=== PATIENT | male | born 1940 | race Caucasian/White ===

== ENCOUNTER 2023-01-26 09:21 | Inpatient (IN) ==
[2023-01-26 10:07] LABS: Basophils # (auto) 0.05 K/uL (0-0.2); Eosinophils # (auto) 0.27 K/uL (0-0.50); Eosinophils % (auto) 5.2 %; Hematocrit (blood only) 33.2 % (42.0-52.0); Hemoglobin 11.1 g/dl (14.0-18.0); Immature Granulocytes # (auto) 0.04 K/uL (0.01-0.20); Immature Granulocytes % (auto) 0.8 %; Lymphocytes # (auto) 1.93 K/uL (1.2-3.4); Lymphocytes % (auto) 37.3 %; Mean Corpuscular Hemoglobin 30.3 pg (25.0-34.0); Mean Corpuscular Hgb Conc 33.4 g/dL (32.0-36.0); Mean Corpuscular Volume 90.7 fL (80.0-100.0); Mean Platelet Volume 10.9 fL (9.4-12.4); Monocytes # (auto) 0.47 K/uL (0.11-0.59); Monocytes % (auto) 9.1 %; Neutrophils # (auto) 2.41 K/uL (1.40-6.50); Neutrophils % (auto) 46.6 %; Platelet Count 283 K/uL (130-400); RDW Coefficient of Variation 13.5 % (11.5-14.5); RDW Standard Deviation 44.9 fL (36.4-46.3); Red Blood Count 3.66 M/uL (4.70-6.10); White Blood Count 5.17 K/ul (4.8-10.8)
--- NOTE | 2023-01-26 10:07 | XRay Report ---
XR chest 1V portable HISTORY: 82 years-old Male syncope acute syncope COMPARISON: Chest radiograph 05/14/2021 TECHNIQUE: AP view of the chest FINDINGS: Cardiac silhouette is enlarged. Numerous leads overlie the chest which limits the study. There is no pneumothorax, pleural effusion, airspace consolidation or pulmonary edema. Bones of the chest appear grossly intact. IMPRESSION: No acute process. ACT 112: Negative or not required by law. The above report was generated using voice recognition software. It may contain grammatical, syntax o r spelling errors. Electronically signed by: Max García M.D. 01/26/2023 10:06 AM
[2023-01-26 10:17] LABS: Albumin Globulin Ratio 1.2 (0.9-2); Albumin Level 4.1 gm/dl (3.4-5.0); BUN Creatinine Ratio 17.5 (10-20); Bilirubin,Total 0.3 mg/dl (0.2-1.0); Calcium 9.2 mg/dl (8.6-10.3); Creatinine Clr Calc Pharmacy 40.9 ml/min; Est GFR (African American) 55.7 ml/min; Globulin 3.5 gm/dl (2.5-4.0); Magnesium 2.2 mg/dl (1.7-2.4); Total Protein 7.6 gm/dl (6.0-8.3)
[2023-01-26 10:24] LABS: Troponin I High Sensitivity 11.2 pg/ml (0-20)
[2023-01-26 10:30] LABS: Thyroid Stimulating Hormone 7.332 uIu/ml (0.300-4.500)
[2023-01-26 11:02] LABS: T4 Free Thyroxine 0.76 ng/dl (0.61-1.60)
[2023-01-26] MEDS ORDERED: fentaNYL citrate PF 100 MCG/2 ML VIAL ONE (11:51)
[2023-01-26] MEDS ORDERED: MIDAZOLAM HCL 1 MG/ML 2ML VIAL ONE (11:51)
--- NOTE | 2023-01-26 12:37 | Cardiac Catheterization ---
[facility] Data: Application Developer Cardiac Status Clinical evaluation leading to the procedure CAD Presenation: Sx unlikely to be ischemic Diagnostic Physicians Name: Bhargav Saravia MD Closure Device Recommendations: Medical Therapy and/or Counseling Cardiac Cath Procedure Full Procedure Date January 26, 2023 Pre-Procedure Diagnosis Pre-Procedure Diagnosis: CAD and Arrhythmia AUC Score AUC Score: 7 Post-Procedure Diagnosis Post-Procedure Diagnosis: Cardiothoracic Finding (Successful transvenous pacemaker) Procedure(s) Performed Procedure(s) Performed: Temporary Pacemaker and Ultrasound Guided Vascular Access Hot Blast Worker Bhargav Saravia MD Estimated Blood Loss Estimated Blood Loss: <5 Medication(s) Medication(s): Lidocaine 1% Summary of Findings Temporary transvenous pacemaker placement Indication: Patient with known severe LV dysfunction and multivessel CAD awaiting revascularization. Known prior high degree AV block and left bundle branch block. Today had unresponsive event for which patient received shock from his wearable defibrillator. Back at baseline on arrival to ED with heart rates down to as low as the low 30s with high degree AV block. Procedure: Local anesthesia with 1% lidocaine Under ultrasound guidance right IJ accessed with micropuncture needle 7 Fr sheath placed to right IJ Transvenous pacing wire navigated into RV under fluoroscopic guidance Appropriate pacing confirmed down to <1 mA Sheath sutured into place Final temporary pacemaker settings: VVI 60 bpm at 5 mA Summary: 1. Successful placement of temporary transvenous pacemaker Recommendations: Awaiting transfer to [facility] for revascularization and consideration of permanent device Hemodynamics Rest Ao:: -- Final Ao: -- LV: -- Recommendations Recommendations: Medical Therapy and/or Counseling Specimens Specimens: None Radiation Exposure (mGy) 9 Contrast (mls) 0 Anesthesia Local Procedural Complication(s) None Disposition ICU I attest to the content of the Intraoperative Record and any orders documented therein. Any exceptions are noted below. [facility] Card Cath Procedure Codes Therapeutic Services & Ancillary Procedure 1: Cardiovascular Tx and Anc Procedures: 99384 Temp Pacer Insert Procedure 2: Cardiovascular Tx and Anc Procedures: 09270 Ultrasonic Guidance Vascular Access PG Care Time/CCT Total # of Minutes Spent Total Time Spent with Patient: Total time spent is greater than 50% in coordination of care (as documented) at patient's floor/unit and/or counseling patient:
--- NOTE | 2023-01-26 12:42 | History & Physical Report ---
Date of Service January 26, 2023 Assessment & Plan (1) Multiple vessel coronary artery disease: Plan: 2. Severe LV dysfunction 3. High degree AV block 4. Left bundle branch block 5. Suspected ventricular arrhythmia with unresponsive event Patient awaiting transfer to [facility] for further consideration of revascularization options and permanent pacemaker/ICD. At present he is asymptomatic. Monitor in ICU until transfer. Will start heparin infusion, aspirin. History of Present Illness Primary Care Provider: Eliza Mccarty PA-C Mr. Alfredo is an 82-year-old man with known severe LV dysfunction and multivessel CAD awaiting revascularization. Known prior high degree AV block and left bundle branch block. Today had unresponsive event for which patient received shock from his wearable defibrillator. Back at baseline on arrival to ED with heart rates down to 30s with high degree AV block. Patient underwent successful placement of temporary transvenous pacemaker. Currently asymptomatic. Allergies Allergy/AdvReac Type Severity Reaction Status Date / Time atorvastatin Allergy Muscle Pain Verified 01/25/23 10:56 ezetimibe [From Zetia] Allergy Verified 01/25/23 10:56 lisinopril Allergy Rash Verified 01/25/23 10:56 zoster vaccine live Allergy Verified 01/25/23 10:56 Home Medications Medication Instructions Recorded Confirmed Type omega-3s 300 ux-slh-tlw-other 1 tab PO HS 05/25/18 01/25/23 History kbcez7s-tteo oil 1,000 mg capsule ([place]-3 Fish Oil) gemfibrozil 600 mg tablet 600 mg PO BID 05/11/20 01/25/23 History aspirin 81 mg tablet,delayed 81 mg PO HS 05/14/21 01/25/23 History release (Pako Low Dose Aspirin) multivitamin 1 tab PO HS 05/14/21 01/25/23 History alogliptin 6.25 mg tablet 12.5 mg PO QAM 01/13/23 01/25/23 History empagliflozin 10 mg tablet 10 mg PO DAILY 01/13/23 01/25/23 History (Jardiance) mecobalamin (vitamin B12) 500 mcg 500 mcg PO DAILY 01/13/23 01/25/23 History chewable tablet metformin 500 mg tablet 1,000 mg PO BID 01/13/23 01/25/23 History tamsulosin 0.4 mg capsule 0.4 mg PO DAILY 01/13/23 01/25/23 History rosuvastatin 5 mg tablet 5 mg PO DAILY #30 tabs 01/25/23 01/25/23 Rx Past Med/Surg History Medical History Back pain Diabetes mellitus, type 2 Hypertension Urethral injury Urethral stricture Surgical History H/O elbow surgery History of tonsillectomy History of tooth extraction Family History Other No pertinent family history in first degree relatives Social History Smoking Status: Never smoker Tobacco Type: Pipe Second Hand Exposure: No; Do You Dip or Chew Tobacco: No; Hx Alcohol Use: No Hx Substance Use: No Preferred Language: French Communication Ability: Effective Director Software Required: No Beliefs That Will Affect Care: None Current Living Situation: Spouse Feels Safe at Home: Yes Assistive Devices: Denture - Upper and Denture - Lower Review of Systems Review of Systems: All systems reviewed & are unremarkable except as noted in HPI & below Physical Exam Constitutional: WD/WN, vitals as above Eyes: + anicteric sclerae Respiratory: normal respiratory effort Cardiovascular: Rate/Rhythm: regular rate Heart Sounds: + murmur Gastrointestinal (Abdomen): Percussion/Palpation: abdomen soft; abdomen nontender Skin: no rashes, warm and dry Psychiatric: A+Ox3, euthymic affect Results & Data Results & Data Vital Signs (Past 12 Hours) Vital Signs Temp Pulse Pulse Resp BP Pulse Ox O2 Del Method 01/26/23 11:25 49 L 18 95 01/26/23 11:25 159/56 H 01/26/23 11:00 43 L 14 98 01/26/23 10:46 162/59 H 01/26/23 10:46 41 L 10 L 97 01/26/23 10:31 156/62 H 01/26/23 10:31 42 L 16 96 01/26/23 10:30 39 L 15 98 01/26/23 10:20 47 L 15 97 01/26/23 10:17 49 L 17 96 01/26/23 10:17 159/84 H 01/26/23 10:10 52 L 17 97 01/26/23 10:02 46 L 13 95 01/26/23 10:02 149/42 H 01/26/23 10:00 44 L 15 96 01/26/23 09:50 47 L 18 95 01/26/23 09:46 47 L 15 95 01/26/23 09:46 131/51 L 01/26/23 09:40 46 L 17 92 01/26/23 09:34 133/41 L 01/26/23 09:34 45 L 20 95 01/26/23 09:31 47 L 18 01/26/23 09:50 46 L 01/26/23 09:40 92 Room Air 01/26/23 09:33 97.7 F 46 L 95 Room Air 01/26/23 09:33 Room Air 01/26/23 09:33 97.7 F 46 L 16 133/41 L 97 Room Air Code Status & VTE Plan VTE Prophylaxis Plan VTE Prophylaxis will be ordered: Yes PG Care Time/CCT Total # of Minutes Spent Total Time Spent with Patient: Total time spent is greater than 50% in coordination of care (as documented) at patient's floor/unit and/or counseling patient: Coding Level of Care Code 12365 INT INP/OBS CARE 2/55MIN Diagnoses Multiple vessel coronary artery disease I25.10
[2023-01-26] MEDS ORDERED: HEPARIN SODIUM/DEXTROSE 25,000 UNITS/500 ML BAG IV SCH (12:45)
[2023-01-26] MEDS ORDERED: Heparin IV Adult Wt-Based Standard *NO* Bolus Protocol IV SCH (13:45)
--- NOTE | 2023-01-26 14:00 | Critical Care Consultation ---
Date of Consultation January 26, 2023 Assessment & Plan (1) Symptomatic bradycardia: (2) Nonsustained ventricular tachycardia: (3) Multiple vessel coronary artery disease: (4) Second degree AV block: Plan Reason Critically Ill: 82-year-old male with significant past medical history of multivessel coronary disease, second-degree AV block, severe LV dysfunction, and diabetes who presented with acute unresponsive episode in the setting of V-fib. Transvenous pacer placed. Patient requires ICU for close hemodynamic monitoring in the setting of post temporary transvenous pacemaker placement. NEURO - * CAM ICU: NEGATIVE CARDIAC/VASCULAR - * Symptomatic bradycardia - * Likely multifactorial in the patient with multivessel coronary artery disease and reduced EF. * Patient with episode of nonsustained V-fib earlier today which responded to defibrillation from LifeVest. * Transvenous pacemaker placed with current rate of 60 bpm. Patient remains hemodynamically stable at this time. * Plan is for transfer to tertiary care facility with cardiothoracic surgery services. * Monitor on telemetry. RESPIRATORY - * No history of pulmonary disease. * Saturating well on room air. GI/NUTRITION - * N.p.o. pending CT surgery evaluation. RENAL/LYTES - * No significant electrolyte derangements. - * Hankins in place - Strict I&Os. ENDO - * DMII * BSGs per unit protocol. ISS --> gtt per unit policy. HEME - * Stable H&H ID - * No concerns for infectious contribution at this time. * Could consider Lyme titer for the sake of completion, but uncertain if it will change the patient's current clinical trajectory. LINES/IV ACCESS - * PIVs x2 * RIGHT IJ Transvenous Pacer DVT PROPHYLAXIS - * Heparin gtt. * SCDs I have personally spent 38 minutes of critical care time in the direct manag ement of this patient. This is a life/limb threatening event. This includes time spent evaluating patient, direct bedside care, chart review, placing orders, interpretation of diagnostic studies, discussion with consultants, patient, and family members, as well as other required patient management activities. This time is exclusive of all separately billable procedures, and teaching time and separate from and in addition to any other critical care service time. Thank you for allowing us to participate in the care of this patient. Please refer to my attending physician's documentation for any further recommendations. Supervising Physician Co-Signing Physician Notes I saw and evaluated the patient with Jairo-Yanique, PA-C, and agree with findings and plan as documented in the note. 82-year-old male with past medical history of multi vessel disease s/p recent cardiac cath. Past medical history: Diabetes, dyslipidemia, BPH He presented to the hospital and high degree AV block with left bundle branch block. He had a syncopal episode at home with 1 shock from the cardiac arrest that he had. He was taken to the [facility] and temporary pacemaker was placed in by cardiology. Sent to ICU for further management At the time of examination patient's heart rate was paced at 60. Blood pressure systolic was in the 150s. Saturation 97% on room air He denied any nausea vomiting No chest pain, no dizziness, no palpitation No headache, no blurry vision Denies any shortness of breath His is also in the room to help with interrogation Constitutional: No acute distress HEENT: EOMI, PERRLA Respiratory system: Good air entry bilaterally, no wheeze, no rhonchi, mild crackles bilateral lower lobes CVS: S1-S2 positive, positive 2 out of 6 systolic murmur appreciated best at aorta Abdomen: Soft, nontender, nondistended, positive bowel sounds x4 Extremities: +2 pulses bilaterally radialis/ dorsalis pedis, no cyanosis, no edema Neuro: Awake alert oriented x3 Psych: Normal mood and affect G/U: No Hankins --Prophylaxis VTE: IPC GI: None Lines: Peripheral, right IJ pacemaker Diet: N.p.o. Plan: Patient was started on heparin drip but he had a mucoid bowel movement with some blood in it. Heparin drip was stopped. Patient is excepted at [facility] for further management. Awaiting transport. Continue monitor hemodynamics. Case was discussed with Dr. Saravia I have personally spent 38 minutes of critical care time in the direct management of this patient. This is a life/limb threatening event. This includes time spent evaluating patient, direct bedside care, chart review, placing orders, interpretation of diagnostic studies, discussion with consultants, patient, and family members, as well as other required patient management activities. This time is exclusive of all separately billable procedures, and teaching time and separate from and in addition to any other critical care service time. Please note the above document was generated using voice recognition software. It may contain grammatical, syntax or spelling errors. History of Present Illness Reason for Consultation: temporary pacemaker Requesting Physician: Dr. Saravia Attending Physician: Bhargav Saravia MD History of Present Illness Patient is an 82-year-old male with a significant past medical history of multivessel coronary artery disease, second-degree AV block, cardiomyopathy, dyslipidemia, and diabetes. The patient had recently been evaluated in the outpatient setting for dyspnea on exertion. He was found to have multivessel coronary artery disease. He was actually seen in office yesterday and arrangements were being made for tertiary care referral. Patient had been fitted with a LifeVest given his reduced EF of 25 to 30%. Patient had an episode of unresponsiveness and received a shock from his wearable defibrillator. He was brought to the emergency department where his heart rate was found to be in the 20s to 30s. He underwent placement of transvenous pacemaker. Upon arrival in the ICU, the patient is awake, alert, and oriented. He reports feeling much better at this time. He currently denies complaints of headaches, dizziness, lightheadedness, chest pain, palpitations, pleuritic pain, nausea, vomiting, or abdominal discomfort. Allergies Allergy/AdvReac Type Severity Reaction Status Date / Time atorvastatin Allergy Muscle Pain Verified 01/25/23 10:56 ezetimibe [From Zetia] Allergy Verified 01/25/23 10:56 lisinopril Allergy Rash Verified 01/25/23 10:56 zoster vaccine live Allergy Verified 01/25/23 10:56 Home Medications Medication Instructions Recorded Confirmed Type omega-3s 300 kl-huz-rpl-other 1 tab PO HS 05/25/18 01/25/23 History pnsui8j-ywwv oil 1,000 mg capsule ([place]-3 Fish Oil) gemfibrozil 600 mg tablet 600 mg PO BID 05/11/20 01/25/23 History aspirin 81 mg tablet,delayed 81 mg PO HS 05/14/21 01/25/23 History release (Pako Low Dose Aspirin) multivitamin 1 tab PO HS 05/14/21 01/25/23 History alogliptin 6.25 mg tablet 12.5 mg PO QAM 01/13/23 01/25/23 History empagliflozin 10 mg tablet 10 mg PO DAILY 01/13/23 01/25/23 History (Jardiance) mecobalamin (vitamin B12) 500 mcg 500 mcg PO DAILY 01/13/23 01/25/23 History chewable tablet metformin 500 mg tablet 1,000 mg PO BID 01/13/23 01/25/23 History tamsulosin 0.4 mg capsule 0.4 mg PO DAILY 01/13/23 01/25/23 History rosuvastatin 5 mg tablet 5 mg PO DAILY #30 tabs 01/25/23 01/25/23 Rx Patient History Medical History Back pain Diabetes mellitus, type 2 Hypertension Urethral injury Urethral stricture Surgical History H/O elbow surgery History of tonsillectomy History of tooth extraction Family History Other No pertinent family history in first degree relatives Social History Smoking Status: Never smoker Tobacco Type: Pipe Second Hand Exposure: No; Do You Dip or Chew Tobacco: No; Hx Alcohol Use: No Hx Substance Use: No Preferred Language: Thai Communication Ability: Effective Hand Alterations Seamstress Required: No Beliefs That Will Affect Care: None Current Living Situation: Spouse Other Information That Helps Us Care for You: No Feels Safe at Home: Yes Safety Concerns: Feels Safe At This Time Assistive Devices: Denture - Upper, Denture - Lower and Glasses Review of Systems Review of Systems: A complete 10 point review of systems was reviewed with the patient with pertinent positives and negatives as per history of present illness. All else were negative. Physical Exam Physical Exam: VITAL SIGNS - Vital signs and nursing notes were reviewed. GENERAL - 82-year-old male appearing his stated age who is in no acute distress. Communicates well with provider and answers questions appropriately. EYES - PERRL with EOMI bilaterally. Sclera anicteric. NOSE - Midline and without cyanosis. MOUTH/OROPHARYNX - Without perioral cyanosis. NECK - Neck with FROM. Supple to palpation. RIGHT IJ Transvenous pacer in place. Dressing clean, dry, and intact. LUNGS - Chest wall symmetric without accessory muscle use, intercostals retractions, or central cyanosis. Normal vesicular breath sounds CTA B/L. No wheezes, rales, or rhonchi appreciated. CARDIAC - RRR with S1/S2. No murmur, rubs, or gallops appreciated. No reproducible tenderness to palpation appreciated over the anterior chest wall. ABDOMEN - Abdominal contour flat without pulsations or visible masses. BS normoactive all four quadrants. No tenderness, palpable masses, hepatosplenomegaly, or ascites noted. EXTREMITIES - No clubbing or peripheral cyanosis. No pretibial edema present. +3 /5 radial and dorsalis pedis pulses palpated throughout. +5/5 strength noted in UE/LE bilaterally. NEUROLOGIC - Cranial nerves II through XII grossly intact. Sensory intact to light touch throughout. PSYCH - A&Ox3 and cooperates fully with examiner. Pt is very pleasant and interacts well with examiner. Results & Data Results & Data Vital Signs (Past 12 Hours) Vital Signs Temp Pulse Pulse Resp BP BP Pulse Ox 01/26/23 13:00 60 18 154/66 H 97 01/26/23 12:45 60 18 176/63 H 97 01/26/23 12:30 60 18 165/63 H 97 01/26/23 11:25 49 L 18 95 01/26/23 11:25 159/56 H 01/26/23 11:00 43 L 14 98 01/26/23 10:46 162/59 H 01/26/23 10:46 41 L 10 L 97 01/26/23 10:31 156/62 H 01/26/23 10:31 42 L 16 96 01/26/23 10:30 39 L 15 98 01/26/23 10:20 47 L 15 97 01/26/23 10:17 49 L 17 96 01/26/23 10:17 159/84 H 01/26/23 10:10 52 L 17 97 01/26/23 10:02 46 L 13 95 01/26/23 10:02 149/42 H 01/26/23 10:00 44 L 15 96 01/26/23 09:50 47 L 18 95 01/26/23 09:46 47 L 15 95 01/26/23 09:46 131/51 L 01/26/23 09:40 46 L 17 92 01/26/23 09:34 133/41 L 01/26/23 09:34 45 L 20 95 01/26/23 09:31 47 L 18 01/26/23 09:50 46 L 01/26/23 09:40 92 01/26/23 09:33 36.5 C 46 L 95 01/26/23 09:33 01/26/23 09:33 36.5 C 46 L 16 133/41 L 97 O2 Del Method 01/26/23 13:00 Room Air 01/26/23 12:45 Room Air 01/26/23 12:30 Room Air 01/26/23 11:25 01/26/23 11:25 01/26/23 11:00 01/26/23 10:46 01/26/23 10:46 01/26/23 10:31 01/26/23 10:31 01/26/23 10:30 01/26/23 10:20 01/26/23 10:17 01/26/23 10:17 01/26/23 10:10 01/26/23 10:02 01/26/23 10:02 01/26/23 10:00 01/26/23 09:50 01/26/23 09:46 01/26/23 09:46 01/26/23 09:40 01/26/23 09:34 01/26/23 09:34 01/26/23 09:31 01/26/23 09:50 01/26/23 09:40 Room Air 01/26/23 09:33 Room Air 01/26/23 09:33 Room Air 01/26/23 09:33 Room Air Laboratory Results 01/26/23 09:00 01/26/23 09:00 Coding Level of Care Code 87234 CRITICAL CARE 1ST 30-74M Diagnoses Symptomatic bradycardia R00.1 Nonsustained ventricular tachycardia I47.29 Multiple vessel coronary artery disease I25.10 Second degree AV block I44.1 Time Spent (min) 38
[2023-01-26] MEDS ORDERED: ICU Protocol for HYPERglycemia SCH (16:30)
[2023-01-27] MEDS ORDERED: ASPIRIN 81 MG ECTAB PO SCH (09:00)
--- NOTE | 2023-01-27 22:01 | Electrocardiogram Report ---
Test Reason : Blood Pressure : / mmHG Vent. Rate : 049 BPM Atrial Rate : 000 BPM P-R Int : 000 ms QRS Dur : 146 ms QT Int : 518 ms P-R-T Axes : 000 -51 107 degrees QTc Int : 467 ms Sinus bradycardia with 2nd degree A-V block (Mobitz I) Premature ventricular complexes Left axis deviation Left bundle branch block Abnormal ECG When compared with ECG of 14-MAY-2021 02:24, Sinus rhythm is now with 2nd degree A-V block (Mobitz I) Vent. rate has decreased BY 33 BPM Left bundle branch block is now Present Confirmed by Denny Olsen ([id number]) on 01/27/2023 10:01:39 PM Referred By: REFERRED SELF Confirmed By:Denny Olsen
--- NOTE | 2023-01-28 08:21 | Emergency Department Note ---
Impression & Plan Nonsustained ventricular tachycardia, Second degree AV block, Symptomatic bradycardia ED Provider Note CHIEF COMPLAINT: syncope HISTORY OF PRESENT ILLNESS: This 82 yo male patient with PMH bradycardia, CAD, nonsustained ventricular tachycardia, cardiomyopathy presents to the emergency department after a syncopal episode. Patient states he got a warm sensation and then his LifeVest shocked him. He did briefly lose consciousness but woke up quickly. Patient is brought in by EMS, noted to be hypotensive upon their arrival and external pacing was initiated. Patient received 2.5 mg of IV Versed for sedation. Blood pressures on arrival are normal with systolic pressure 120- 130. REVIEW OF SYSTEMS: A review of systems was performed with positives and pertinent negatives listed in the history of present illness. 10 systems were reviewed and are otherwise negative. ALLERGIES: see below MEDICATIONS: see below PMH: see below SOCIAL HISTORY: see below DDx: Ventricular dysrhythmia, orthostatic syncope, vasovagal syncope, dehydration, electrolyte abnormality, acute coronary syndrome amongst others PHYSICAL EXAM: Vital signs reviewed. General: Chronically ill-appearing 82-year-old male, in no significant distress. External pacer pads in place HEENT: No scleral icterus, PERRLA, neck supple. Atraumatic. Cardiovascular: Diminished heart tones with regular rhythm, systolic ejection murmur, external pacing Pulmonary: Clear to auscultation bilaterally, normal work of breathing. Abdomen: Soft, nontender, nondistended, positive bowel sounds. Musculoskeletal: Atraumatic, no peripheral edema. Neurologic: Patient sedate appearing but awake and answering questions, CN II- XII intact, oriented x 3, speech is clear Skin: Warm, dry, no rash EMERGENCY DEPARTMENT COURSE/MDM: This patient was evaluated and appeared to be in no significant distress. IV access was obtained and laboratory work was drawn. The patient was placed on a groundwater monitoring technician and noted to be paced, consistent with his external pacemaker. Review of the patient's records, patient has been referred to [facility] for evaluation of staged PCI versus CABG. and consult Dr. Olsen of [facility] cardiology who recommended transfer to [facility] for higher level of care. [facility] cardiology was contacted and Dr. Garcia has accepted the patient but recommended transvenous pacing for stability during transfer. The patient was taken to the Food Services Director by Dr. Saravia for pacer placement. MONITORING: An order for cardiac monitoring was placed and the patient is noted to be in a paced rhythm at 47 beats per minute. RADIOLOGY: CXR to my interpretation reveals no focal lung consolidation or failure. Otherwise defer to radiology. EKG: To my interpretation is a sinus bradycardia with second-degree AV block, PVC with left bundle branch block and left axis deviation. QTc is 467. When compared to previous dated May 14, 2021, second-degree AV block and left bundle branch block are now present. Rate has decreased. 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 I have personally spent 45 minutes of critical care time in the direct management of this patient. This was a life/limb threatening event. This 45 minutes is in excess of all separately billable procedures. Past Med/Surg History Medical History Back pain Diabetes mellitus, type 2 Hypertension Urethral injury HAD INJURY 1957--HAD MULTIPLE PROCEDURES TO ENLARGE WITH CATH PLACEMENTS, LAST 03/2018--FREQ UTI'S Urethral stricture Surgical History H/O elbow surgery RIGHT History of tonsillectomy History of tooth extraction ALL TEETH Family History Other No pertinent family history in first degree relatives Social History Smoking Status: Never smoker Tobacco Type: Pipe Second Hand Exposure: No; Do You Dip or Chew Tobacco: No; Hx Alcohol Use: No Hx Substance Use: No Preferred Language: Russian Communication Ability: Effective Clinical Research Director Required: No Beliefs That Will Affect Care: None Current Living Situation: Spouse Feels Safe at Home: Yes Assistive Devices: Denture - Upper, Denture - Lower and Glasses Allergies Allergies Allergy/AdvReac Type Severity Reaction Status Date / Time atorvastatin Allergy Muscle Pain Verified 01/25/23 10:56 ezetimibe [From Zetia] Allergy Verified 01/25/23 10:56 lisinopril Allergy Rash Verified 01/25/23 10:56 zoster vaccine live Allergy Verified 01/25/23 10:56 Home Meds Home Medications Medication Instructions Recorded Confirmed omega-3s 300 sw-lku-rfv-other 1 tab PO HS 05/25/18 01/25/23 itbru0e-ngny oil 1,000 mg capsule ([place]-3 Fish Oil) gemfibrozil 600 mg tablet 600 mg PO BID 05/11/20 01/25/23 aspirin 81 mg tablet,delayed 81 mg PO HS 05/14/21 01/25/23 release (Pako Low Dose Aspirin) multivitamin 1 tab PO HS 05/14/21 01/25/23 alogliptin 6.25 mg tablet 12.5 mg PO QAM 01/13/23 01/25/23 empagliflozin 10 mg tablet 10 mg PO DAILY 01/13/23 01/25/23 (Jardiance) mecobalamin (vitamin B12) 500 mcg 500 mcg PO DAILY 01/13/23 01/25/23 chewable tablet metformin 500 mg tablet 1,000 mg PO BID 01/13/23 01/25/23 tamsulosin 0.4 mg capsule 0.4 mg PO DAILY 01/13/23 01/25/23 Previous Rx's Medication Instructions Recorded rosuvastatin 5 mg tablet 5 mg PO DAILY #30 tabs 01/25/23 Results & Data (ED) Home Medications Current Medication List: was personally reviewed by me Laboratory Data Attestation: I reviewed the patient's lab results. 01/26/23 09:00 01/26/23 09:00 Lab Results 01/26/23 01/26/23 01/26/23 Range/Units 09:00 09:00 09:00 WBC 5.17 (4.8-10.8) K/ul RBC 3.66 L (4.70-6.10) M/uL Hgb 11.1 L (14.0-18.0) g/dl Hct 33.2 L (42.0-52.0) % MCV 90.7 (80.0-100.0) fL MCH 30.3 (25.0-34.0) pg MCHC 33.4 (32.0-36.0) g/dL RDW Std Deviation 44.9 (36.4-46.3) fL RDW Coeff of Supriya 13.5 (11.5-14.5) % Plt Count 283 (130-400) K/uL MPV 10.9 (9.4-12.4) fL Immature Gran % (Auto) 0.8 % Neut % (Auto) 46.6 % Lymph % (Auto) 37.3 % Warren % (Auto) 9.1 % Eos % (Auto) 5.2 % Baso % (Auto) 1.0 % Neut # (Auto) 2.41 (1.40-6.50) K/uL Lymph # (Auto) 1.93 (1.2-3.4) K/uL Warren # (Auto) 0.47 (0.11-0.59) K/uL Eos # (Auto) 0.27 (0-0.50) K/uL Baso # (Auto) 0.05 (0-0.2) K/uL Immature Gran # (Auto) 0.04 (0.01-0.20) K/uL Sodium 136 (136-145) mmol/L Potassium 5.0 (3.5-5.1) mmol/L Chloride 105 (98-107) mmol/L Carbon Dioxide 19 L (21-32) mmol/L Anion Gap 12 H (3-11) BUN 24 H (6-23) mg/dl Creatinine 1.37 (0.6-1.4) mg/dl Est Cr Clr Drug Dosing 40.9 ml/min Est GFR ( Amer) 55.7 ml/min Est GFR (Non-Af Amer) 48.0 ml/min BUN/Creatinine Ratio 17.5 (10-20) Glucose 267 H (70-99(Fasting)) mg/dl Calcium 9.2 (8.6-10.3) mg/dl Magnesium 2.2 (1.7-2.4) mg/dl Total Bilirubin 0.3 (0.2-1.0) mg/dl AST 21 (13-39) U/L ALT 14 (7-52) U/L Alkaline Phosphatase 68 (34-104) U/L Troponin I High Sens 11.2 (0-20) pg/ml Total Protein 7.6 (6.0-8.3) gm/dl Albumin 4.1 (3.4-5.0) gm/dl Globulin 3.5 (2.5-4.0) gm/dl Albumin/Globulin Ratio 1.2 (0.9-2) TSH 7.332 H (0.300-4.500) uIu/ml Free T4 0.76 (0.61-1.60) ng/dl SARS-CoV-2, RNA, NAAT (NEGATIVE) 01/26/23 Range/Units 09:45 WBC (4.8-10.8) K/ul RBC (4.70-6.10) M/uL Hgb (14.0-18.0) g/dl Hct (42.0-52.0) % MCV (80.0-100.0) fL MCH (25.0-34.0) pg MCHC (32.0-36.0) g/dL RDW Std Deviation (36.4-46.3) fL RDW Coeff of Supriay (11.5-14.5) % Plt Count (130-400) K/uL MPV (9.4-12.4) fL Immature Gran % (Auto) % Neut % (Auto) % Lymph % (Auto) % Warren % (Auto) % Eos % (Auto) % Baso % (Auto) % Neut # (Auto) (1.40-6.50) K/uL Lymph # (Auto) (1.2-3.4) K/uL Warren # (Auto) (0.11-0.59) K/uL Eos # (Auto) (0-0.50) K/uL Baso # (Auto) (0-0.2) K/uL Immature Gran # (Auto) (0.01-0.20) K/uL Sodium (136-145) mmol/L Potassium (3.5-5.1) mmol/L Chloride (98-107) mmol/L Carbon Dioxide (21-32) mmol/L Anion Gap (3-11) BUN (6-23) mg/dl Creatinine (0.6-1.4) mg/dl Est Cr Clr Drug Dosing ml/min Est GFR ( Amer) ml/min Est GFR (Non-Af Amer) ml/min BUN/Creatinine Ratio (10-20) Glucose (70-99(Fasting)) mg/dl Calcium (8.6-10.3) mg/dl Magnesium (1.7-2.4) mg/dl Total Bilirubin (0.2-1.0) mg/dl AST (13-39) U/L ALT (7-52) U/L Alkaline Phosphatase (34-104) U/L Troponin I High Sens (0-20) pg/ml Total Protein (6.0-8.3) gm/dl Albumin (3.4-5.0) gm/dl Globulin (2.5-4.0) gm/dl Albumin/Globulin Ratio (0.9-2) TSH (0.300-4.500) uIu/ml Free T4 (0.61-1.60) ng/dl SARS-CoV-2, RNA, NAAT NEGATIVE (NEGATIVE) Administered Medications Discontinued Medications Fentanyl Citrate (Fentanyl Citrate Pf 100 Mcg/2 Ml Vial) Confirm Administered Dose 100 mcg .ROUTE .STK-MED ONE Stop: 01/26/23 11:52 Last Admin: 01/26/23 14:11 Dose: Not Given Documented By: KYRA Heparin Sodium/Dextrose (Heparin Sodium/Dextrose) 25,000 units in 500 mls @ 26 mls/hr IV .[id number] [facility]; Protocol Stop: 02/25/23 12:44 Last Titration: 01/26/23 14:43 Dose: 0 units/hr, 0 mls/hr Documented By: KYRA Co-signed By: SARAH Admin: 01/26/23 14:13 Dose: 1,300 units/hr, 26 mls/hr Documented By: KYRA Co-signed By: MARILEE Midazolam HCl (Midazolam Hcl 1 Mg/Ml 2ml Vial) Confirm Administered Dose 2 mg .ROUTE .STK-MED ONE Stop: 01/26/23 11:52 Last Admin: 01/26/23 14:12 Dose: Not Given Documented By: KYRA Imaging Data Radiologist's Impression: Chest X-Ray 01/26/23 09:35 XR chest 1V portable HISTORY: 82 years-old Male syncope acute syncope COMPARISON: Chest radiograph 05/14/2021 TECHNIQUE: AP view of the chest FINDINGS: Cardiac silhouette is enlarged. Numerous leads overlie the chest which limits the study. There is no pneumothorax, pleural effusion, airspace consolidation or pulmonary edema. Bones of the chest appear grossly intact. IMPRESSION: No acute process. ACT 112: Negative or not required by law. The above report was generated using voice recognition software. It may contain grammatical, syntax or spelling errors. Electronically signed by: Max García M.D. 01/26/2023 10:06 AM Discharge Plan Visit Data Chief Complaint: Bradycardia Stated Complaint: BRADYCARDIA, SYNCOPE, AMS ED Provider: Farnaz Manuel Discharge Problem: Nonsustained ventricular tachycardia, Second degree AV block, Symptomatic bradycardia
--- NOTE | 2023-02-06 09:53 | Discharge Summary ---
Date of Service February 06, 2023 Admission HPI Per Admitting Provider Mr. Alfredo is an 82-year-old man with known severe LV dysfunction and multivessel CAD awaiting revascularization. Known prior high degree AV block and left bundle branch block. Today had unresponsive event for which patient received questionable shock from his wearable defibrillator. Back at baseline on arrival to ED with heart rates down to 30s with high degree AV block. Patient underwent successful placement of temporary transvenous pacemaker. Currently asymptomatic. Admission Exam (Per Admitting) Constitutional WD/WN, vitals as above Eyes + anicteric sclerae Respiratory normal respiratory effort Cardiovascular Rate/Rhythm: regular rate Heart Sounds: + murmur Gastrointestinal (Abdomen) Percussion/Palpation: abdomen soft; abdomen nontender Skin no rashes, warm and dry Psychiatric A+Ox3, euthymic affect Discharge Data Consultations 01/26/23 12:22 Consult Radio Time Buyer Routine 01/26/23 13:55 Burn CD for patient Stat Procedures Performed Operation Date: 01/26/23 11:30 Actual Procedures p Ins/RemTemporary Transvenous Pacer - George Saravia MD s Ultrasound Vascular Access - George Saravia MD Hospital Course (1) Multiple vessel coronary artery disease: 2. Severe LV dysfunction 3. High degree AV block 4. Left bundle branch block 5. Unresponsive eventquestion symptomatic bradycardia versus ventricular arrhythmia Patient was monitored briefly in ICU with transvenous temporary pacemaker in place. Was started on heparin infusion but held in the setting of questionable blood in sputum. He otherwise remained asymptomatic with no recurrent chest pain, presyncope. Transferred to [facility] via ambulance for further consideration of revascularization options and permanent pacemaker/ICD. Follow-up with Dr. Rivera as an outpatient following hospitalization. Coding Level of Care Code 65463 IN/OBS DISCH 30 MIN/LESS Diagnoses Multiple vessel coronary artery disease I25.10
== END 2023-01-26 16:02 | disposition short-term general hospital (02) | DRG 262 ==
LOC: ED 09:21 → CC 12:01 → 1E 12:22

== ENCOUNTER 2024-08-06 05:51 | Inpatient (IN) ==
--- NOTE | 2024-07-17 10:01 | PAT Medication Instructions ---
Medication Instructions Date of Service July 17, 2024 Home Medications omega-3s 300 ky-pzo-nyo-other xxqko0x-lmfw oil 1,000 mg capsule ([place]-3 Fish Oil) 1 tab PO HS aspirin 81 mg tablet,delayed release (Pako Low Dose Aspirin) 81 mg PO HS multivitamin 1 tab PO QAM mecobalamin (vitamin B12) 500 mcg chewable tablet 500 mcg PO QAM metformin 500 mg tablet 1,000 mg PO BID tamsulosin 0.4 mg capsule 0.4 mg PO PM metoprolol succinate 25 mg tablet,extended release 24 hr 37.5 mg PO QAM rosuvastatin 5 mg tablet 5 mg PO HS apixaban 5 mg tablet 5 mg PO BID hydralazine 25 mg tablet 25 mg PO QAM isosorbide mononitrate 30 mg tablet,extended release 24 hr 15 mg PO QAM pantoprazole 20 mg tablet,delayed release 20 mg PO QAM semaglutide 0.25 mg or 0.5 mg (2 mg/3 mL) subcutaneous pen injector 0.5 mg subcut WK spironolactone 25 mg tablet 25 mg PO QAM ASK your prescriber and surgeon aspirin 81 mg tablet,delayed release (Pako Low Dose Aspirin) 81 mg PO HS apixaban 5 mg tablet 5 mg PO BID STOP taking 2 weeks before surgery omega-3s 300 kd-wsn-dmz-other gfubl5t-nuzz oil 1,000 mg capsule ([place]-3 Fish Oil) 1 tab PO HS STOP taking at least 7 days before surgery semaglutide 0.25 mg or 0.5 mg (2 mg/3 mL) subcutaneous pen injector 0.5 mg subcut WK DO NOT take the morning of surgery multivitamin 1 tab PO QAM mecobalamin (vitamin B12) 500 mcg chewable tablet 500 mcg PO QAM metformin 500 mg tablet 1,000 mg PO BID spironolactone 25 mg tablet 25 mg PO QAM Take morning of surgery With a small sip of water, OTHERWISE NOTHING TO EAT OR DRINK AFTER MIDNIGHT: metoprolol succinate 25 mg tablet,extended release 24 hr 37.5 mg PO QAM hydralazine 25 mg tablet 25 mg PO QAM isosorbide mononitrate 30 mg tablet,extended release 24 hr 15 mg PO QAM pantoprazole 20 mg tablet,delayed release 20 mg PO QAM Take evening before surgery metformin 500 mg tablet 1,000 mg PO BID tamsulosin 0.4 mg capsule 0.4 mg PO PM rosuvastatin 5 mg tablet 5 mg PO HS Other Notes If you have any questions please call us at [phone] or [phone] or [phone] or [phone]
--- NOTE | 2024-07-24 09:02 | Anesthesiology Consultation ---
Date of Service July 24, 2024 Assessment & Plan (1) Encounter for pre-operative examination: - will request most recent cardiology office note and [facility] report [facility]. - check BSG am DOS. - ICD. - semaglutide instructions: Patient informed at PAT visit to stop 7 days prior to surgery-voiced understanding. Patient advised to check with prescriber to see if alternative diabetic management changes recommended while holding semaglutide- if so, patient to call back to PAT to update chart and discuss if any further preop medication instructions needed. Patient and state prescribing provider is aware and also advised semaglutide be held for 7 days. Chart Review Chart Review: Pending: Refer to Additional Notes / Consult section and Patient seen in Pre Admission Testing Teaching & Discussion Pre-Anesthesia Teaching/Discussion Notes: Instructed NPO after midnight before surgery, except medications with 15 cc of water. Medication instructions pro vided according to the PAT guidelines. History Surgery Operation Date: 08/06/24 08:00 Proposed Procedures p Right Transcarotid Artery Revascularization - Aleksander Peñaloza MD Height/Weight Height: 5 ft 8 in Weight: 77 kg Allergies Allergy/AdvReac Type Severity Reaction Status Date / Time atorvastatin Allergy Unknown Muscle Pain Verified 07/16/24 14:03 ezetimibe [From Zetia] Allergy Unknown Muscle Pain Verified 07/16/24 14:03 lisinopril Allergy Unknown Rash Verified 07/16/24 14:03 zoster vaccine live Allergy Unknown Rash Verified 07/16/24 14:03 simvastatin AdvReac Unknown Muscle Pain Verified 07/16/24 14:03 Medications Home Medications Medication Instructions Recorded Confirmed Last Taken omega-3s 300 bx-ocf-lbt-other 1 tab PO HS 05/25/18 07/16/24 07/25/23 tctcg2h-irjg oil 1,000 mg capsule ([place]-3 Fish Oil) aspirin 81 mg tablet,delayed 81 mg PO HS 05/14/21 07/16/24 07/25/23 release (Pako Low Dose Aspirin) multivitamin 1 tab PO QAM 05/14/21 07/16/24 07/25/23 mecobalamin (vitamin B12) 500 mcg 500 mcg PO QAM 01/13/23 07/16/24 07/25/23 chewable tablet metformin 500 mg tablet 1,000 mg PO BID 01/13/23 07/16/24 07/25/23 metoprolol succinate 25 mg 37.5 mg PO QAM 07/17/23 07/16/24 07/26/23 08:30 tablet,extended release 24 hr rosuvastatin 5 mg tablet 5 mg PO HS 07/17/23 07/16/24 07/25/23 apixaban 5 mg tablet 5 mg PO BID 07/16/24 07/16/24 Unknown hydralazine 25 mg tablet 25 mg PO QAM 07/16/24 07/16/24 Unknown isosorbide mononitrate 30 mg 15 mg PO QAM 07/16/24 07/16/24 Unknown tablet,extended release 24 hr pantoprazole 20 mg tablet,delayed 20 mg PO QAM 07/16/24 07/16/24 Unknown release semaglutide 0.25 mg or 0.5 mg (2 0.5 mg subcut WK 07/16/24 07/16/24 Unknown mg/3 mL) subcutaneous pen injector spironolactone 25 mg tablet 25 mg PO QAM 07/16/24 07/16/24 Unknown docusate sodium 100 mg tablet 100 mg PO BID PRN Constipation 07/24/24 07/24/24 Unknown Additional Notes: Patient was instructed and it was written on provided medication instructions to not take docusate the morning of surgery. Patient states that they were instructed to not yet take hydralazine or isosorbide mononitrate and he is no longer taking tamsulosin under instruction of the [place]. Past Medical History Medical History (Updated 07/24/24 @ 10:33 by Sophia Yadav PA-C) Cardiomyopathy EF 30% Diabetes mellitus, type 2 NIDDM GERD (gastroesophageal reflux disease) since starting Ozempic History of bradycardia pacemaker placed Hyperlipidemia Hypertension controlled, stable per pt ICD (implantable cardioverter-defibrillator) in place placed 5 days after open heart surgery at [facility], January 2023 > [employer] - last checked "few months" Multiple vessel coronary artery disease s/p CABG x 2 On anticoagulant therapy Second degree atrioventricular block pacer > follows with [facility] cardio and Dr. Kaur Stenosis of right carotid artery severe Umbilical hernia Urethral injury self catherizes 3 times a day- follows w/ urology at [facility] [place] INJURY 1957--HAD MULTIPLE PROCEDURES TO ENLARGE WITH CATH PLACEMENTS Patient denies h/o stroke, seizures, blood clots/DVTs or blood transfusions. Exercise / Class Metabolic Activity II 4-5 Yardwork/Stairs/Walk up hill (denies chest discomfort or shortness of breath with one flight of stairs) Past Family History Family History Other No pertinent family history in first degree relatives Past Surgical History Surgical History (Updated 07/24/24 @ 10:32 by Sophia Yadav PA-C) H/O elbow surgery right History of aortic valve replacement History of cardiac cath January 2023 at [facility] > no stents > bypass/valve surgery History of cataract surgery left History of coronary artery bypass graft January 2023 at [facility] > 2 vessels History of tonsillectomy History of tooth extraction ALL TEETH Hx of right cataract extraction Past Anesthesia History No Hx of Anesthesia Complications and No Family Hx of Anesthesia Complications History of PONV No Hx of PONV and No Hx of Motion Sickness Social History Smoking Status: Former smoker tobacco type: pipe Do You Dip or Chew Tobacco: No Smoking End Date: quit 1980 Hx Alcohol Use: Yes Alcohol type: wine alcohol intake frequency: holidays/special occasions only Hx Substance Use: No substance use type: does not use Review of Systems Snoring, denies witnessed apneas. Patient denies chest pain, shortness of breath, dyspnea on exertion, fever, chills, cough, wheezing, or palpitations. Physical Exam Vital Signs Vitals BP 112/70 P 76 TEMP 98.5 SP02 96% on RA RESP 18 Physical Patient resting comfortably in chair in no acute distress, alert and oriented, responding appropriately throughout visit Full cervical extension range of motion without pain TMD < 3 finger breadths Mallampati Score 2 Dentition: upper and lower dentures Lungs: normal respiratory effort. Good air movement, clear throughout to auscultation, no adventitious breath sounds Cardiac: regular rate and rhythm, no murmurs noted Carotid arteries: negative bruit bilat Lab Results Anesthesia Preop Results Results Anesthesia Widget: Na 137 mmol/L (136-145) 07/24/24 K 4.8 mmol/L (3.5-5.1) 07/24/24 Cl 102 mmol/L (98-107) 07/24/24 CO2 27 mmol/L (21-32) 07/24/24 BUN 21 mg/dl (6-23) 07/24/24 Creat 1.07 mg/dl (0.6-1.4) 07/24/24 Glucose Level 185 mg/dl (70-99(Fasting)) H 07/24/24 PT 11.1 Seconds (9.0-12.0) 07/24/24 PTT 24 Seconds (21-31) 07/24/24 INR 1.0 (0.9-1.1) 07/24/24 HA1c 7.0 % (4.5-5.6) H 07/24/24 Blood Type A Negative 07/24/24 Antibody Screen NEGATIVE 07/24/24 Testing Laboratory Results 07/12/24 WBC: 10.3 H/H: PLATELETS: 203,000 Electrocardiogram Date: 07/24/24 AV dual paced rhythm, rate 76 bpm Chest X-Ray Date: 07/24/24 No plain film evidence of an acute cardiopulmonary process. Echocardiogram Date: 01/30/23 MATTHIAS LVEF 30-34% pre CABG and AVR Large sized septal, anteroseptal, inferior and posterior wall motion abnormality with hypokinesis to akinesis of the segments Severe aortic valve regurgitation Mild aortic valve stenosis Cardiac Catheterization Date: 01/20/23 LMT: Large caliber, mild disease less than 20% stenosis and mild to moderate calcification. Vessel bifurcates into LAD and circumflex. LAD: Large caliber. Proximal segment with mild calcification and very mild disease. It gives a large caliber branching first diagonal which has proximal segment disease of 30%. The mid LAD that has diffuse mild disease and appears to bifurcate into a large caliber long septal trunk providing the multiple septal branches and shortly after is occluded at a small caliber D2. The distal LAD fills late via L to L collaterals and appears to be transapical. LCx: Large caliber and nondominant. Travels in the AV groove where the proximal segment has mild disease. It gives 3 relatively small caliber obtuse marginal branches. It terminates as a large posterolateral branch. Mid AV groove vessel has 70% long eccentric stenosis. RCA: Large caliber and dominant. Proximal segment has mild calcification and long eccentric mild stenosis. The mid vessel also has mild disease and then before it transitions to the distal vessel there is a focal 80 to 90% calcified stenosis. The distal RCA has tandem 95% blockages. Vessel bifurcates into the PDA and the posterolateral branch. These vessels have mild disease and the PDA also fills via left to right collateralization. The apical LAD fills via right to left collateralization. 1. Severe multivessel coronary artery disease as described. There is associated right to left, left to left, and left to right collateralization. 2. Recommend evaluation by cardiac surgery in combination with interventional cardiology at a tertiary center regarding coronary artery bypass grafting versus complex multivessel PCI. Unclear if the distal LAD will be an adequate target. Also unclear is viability of the myocardium. Other Testing Neck CTA 06/07/24 1. Extensive atherosclerotic plaque within the bilateral carotid bifurcations, r ight greater than left. This results in severe (80-90%) of the proximal right internal carotid artery which has mildly progressed since prior exam. 2. 30% stenosis of the proximal left internal carotid artery. 3. Severe short segment stenosis of the proximal left vertebral artery. Cardiac MRI 04/24/23 Significant artifact from the defibrillator, viability assessment is very limited Anterior wall, anterolateral wall viability cannot be assessed Anteroseptal and inferior wall are viable Inferolateral wall is mostly viable Ransom is viable LVEF 32% RVEF 50%
[2024-08-06 06:48] LABS: BUN Creatinine Ratio 17.3 (10-20); Calcium 9.4 mg/dl (8.6-10.3); Creatinine Clr Calc Pharmacy 52.1 ml/min; Potassium 4.4 mmol/L (3.5-5.1)
[2024-08-06] MEDS: LACTATED RINGER'S 1,000 ML IV SCH ×2 (06:48→17:08)
[2024-08-06] MEDS ORDERED: ONDANSETRON INJ 2 MG/ML 2 ML VIAL ONE (07:09)
[2024-08-06] MEDS ORDERED: ROCURONIUM BROMIDE 10 MG/ML 5 ML VIAL IV ONE (07:09)
[2024-08-06] MEDS ORDERED: PHENYLEPHRINE HCL 10 MG/ML VIAL ONE (07:09)
[2024-08-06] MEDS ORDERED: GLYCOPYRROLATE 0.2 MG/ML VIAL ONE (07:09)
[2024-08-06] MEDS ORDERED: fentaNYL citrate PF 100 MCG/2 ML VIAL ONE (07:09)
[2024-08-06] MEDS ORDERED: SUGAMMADEX SODIUM 200 MG/2 ML VIAL IV ONE (07:09)
[2024-08-06] MEDS ORDERED: DEXAMETHASONE SOD INJ 4 MG/ML VIAL ONE (07:09)
[2024-08-06] MEDS ORDERED: PROPOFOL IV EMULSION 10 MG/ML 20 ML VIAL IV ONE (07:09)
[2024-08-06] MEDS ORDERED: ePHEDrine sulfate 50 MG/ML AMP ONE (07:09)
[2024-08-06] MEDS ORDERED: LIDOCAINE 2% 2 ML VIAL/AMP(20MG/ML) INFIL ONE (07:09)
[2024-08-06] MEDS ORDERED: NITROGLYCERIN 5 MG/ML 10 ML VIAL ONE ×2 (07:09→12:18)
[2024-08-06] MEDS ORDERED: SODIUM CHLORIDE 0.9% PF INJ 10 ML VIAL ONE (07:17)
[2024-08-06] MEDS ORDERED: HEPARIN SOD (PORCINE) 1000 UNIT/ML ONE (07:27)
--- NOTE | 2024-08-06 07:41 | History & Physical Report ---
Date of Service August 06, 2024 History of Present Illness Primary Care Provider: Eliza Mccarty PA-C Name: REINA DIEZ Patient Number: [id number] : 1940 Date of Service: 07/11/2024 Chief Complaint: _Follow-up to discuss CTA neck HPI: _Mr. Diez is an elderly male who presents to Dr. Pñealoza's vascular surgery clinic today for an appointment to discuss his recent CTA of the neck done due to significantly increased velocities in the right ICA on a surveillance ultrasound. Patient continues to deny any symptoms, specifically amaurosis, unilateral extremity weakness numbness or tingling, difficulty speaking or swallowing, facial droop, sudden onset confusion. He is anxious for the results of his test. His is present today as well Imaging: Patient underwent a CTA of the neck performed at [facility] which demonstrates at least 90% stenosis of the right ICA, and about 50% stenosis of the left ICA. This is consistent with his recent ultrasound results. Current Home Meds: (Last Updated 07/11 11:03) apixaban (apixaban 5 mg oral tablet) 5 mg PO bid aspirin (aspirin 81 mg oral delayed release tablet) 81 mg PO Daily clopidogrel (Plavix 75 mg oral tablet) 75 mg PO Daily metFORMIN (metFORMIN 1000 mg oral tablet) 1,000 mg PO bid metoprolol (metoprolol succinate 25 mg oral tablet, extended release) 1.5 tab PO Daily multivitamin 1 tab PO Daily omega-3 polyunsaturated fatty acids (omega-3 polyunsaturated fatty acids 1200 mg oral capsule) with 1000 vitamin D3 pantoprazole (pantoprazole 20 mg oral delayed release tablet) 20 mg PO Daily rosuvastatin (rosuvastatin 20 mg oral tablet) 20 mg PO Daily semaglutide (Ozempic (0.25 mg or 0.5 mg dose) 2 mg/3 mL subQ pen) 0.5 mg subQ q7days spironolactone (spironolactone 25 mg oral tablet) 25 mg PO Daily HAZARDOUS ME DICATION | tablet: green | suspension: steve Lamar 05/16 13:31 tamSULOsin (tamsulosin 0.4 mg oral capsule) 0.4 mg PO Daily Allergies and Sensitivities: Shingrix(Redness) Shingrix(Cellulitis) Statins (HMG-CoA reductase inhibitors)(Arthralgia) Statins (HMG-CoA reductase inhibitors)(Myalgia) Past Medical History: Problems: Stenosis of right internal carotid artery OBJECTIVE Vitals: Last Updated 07/11/24 10:08 Date Temp BP Location Pulse RR SpO2 Pain 07/11/24 136/64 Right Arm 63 96 0 04/17/23 118/70 Right Arm 04/17/23 106/64 Left Arm 93 96 Vital Signs are the last 3 documented. No Orthostatic Data Available No Height/Weight Data Available Physical Exam Constitutional: In general patient is a healthy-appearing well-nourished well- developed elderly male in no distress. He is alert and oriented with any focal deficits. His right carotid does demonstrate a bruit. His heart is irregular. His lungs are clear. Brachial and radial pulses are +2. Lower extremities the pulses are +2. He is brisk capillary fill and no sign of distal ischemia. ASSESSMENT: _ PLAN: _ 1 ) _severe right ICA stenosis, asymptomatic Patient does appear to have severe right ICA stenosis of at least 90% by CTA. This degree of stenosis does place the patient at a significantly increased risk of having a stroke. Due to his increased risk of stroke, we recommended that the patient consider surgical intervention. The procedures of carotid endarterectomy versus transcarotid artery revascularization were discussed at length with the patient and his present. Patient elects to proceed with right TCAR. The risks of the surgery, including not limited to bleeding, infection, stroke, nerve damage, blood clots, heart attack, , or discussed at length with the patient by myself at Dr. Peñaloza's request. Patient expresses understanding and agreement to proceed. This will occur in the next few weeks at the patient's convenience. We did start the patient on clopidogrel 75 mg daily today, in addition to his 81 mg aspirin as well as his statin medication which he takes chronically. For a TCAR procedure, patients are required to be on Plavix, aspirin, and statin medication for 1 year postoperatively. Patient understands this. 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 Patient is advised to call with any questions or concerns. He is agreeable this plan. Thank you for letting us participate in the care of this patient. I have personally spent_40__ minutes performing lfgi-in-wolm and cvw-snka-ou-face activities on this date of service.Time does not include separately reported services. Activities Include: _x_ review of the medical record _x_ obtaining a history _x_ physical exam/evaluation __ review labs _x_ review radiology reports x__ counseling/educating patient/family/caregiver __ discussion/referral to other healthcare professional _x_ documenting care in the medical record __ independent interpretation of results _x_ communication of results to patient/family/caregiver _x_ coordination of care Signature Line Electronic Signature on File Electronically Reviewed/Signed by: Alejandra Lizarraga PA-C Author Signature Dt/Tm:07/11/2024 11:[address] [place] [address] LM Addendum by GEORGE Lizarraga Lynn on July 11, 2024 11:15 EDT (Verified) Patient also brought a report of a CT [facility] [place] [facility] 23, 2024 which does demonstrate an infrarenal abdominal aortic aneurysm measuring 3.0 cm. This will require future surveillance, but does not require surgical intervention presently. Signature Line Electronic Signature on File CC: GEORGE Booker [facility] [address] [place] [address] * CC: ERICKA Rodriguez [facility] [address] [place] [address] * Electronically Reviewed/Signed by: Alejandra Lizarraga PA-C Author Signature Dt/Tm:07/11/2024 11:15 AM [facility] [address] [place] [address] LM Result Type: HVI Outpt Note Date of Service: July 11, 2024 11:03 EDT Authorization Status: Modified Author or Import Date: GEORGE Lizarraga Lynn on July 11, 2024 11:09 EDT Verified By: GEORGE Lizarraga Lynn on July 11, 2024 11:09 EDT Encounter info: [id number], [facility], Clinic, 07/11/2024 - 07/11/2024 Allergies Allergy/AdvReac Type Severity Reaction Status Date / Time lisinopril Allergy Severe angioedema Verified 08/06/24 06:16 atorvastatin Allergy Unknown Muscle Pain Verified 08/06/24 06:16 ezetimibe [From Zetia] Allergy Unknown Muscle Pain Verified 08/06/24 06:16 zoster vaccine live Allergy Unknown Rash Verified 08/06/24 06:16 simvastatin AdvReac Unknown Muscle Pain Verified 08/06/24 06:16 Home Medications Medication Instructions Recorded Confirmed Type omega-3s 300 vt-niv-yzl-other 1 tab PO HS 05/25/18 08/06/24 History nrrhp9m-tahu oil 1,000 mg capsule ([place]-3 Fish Oil) aspirin 81 mg tablet,delayed 81 mg PO QAM 05/14/21 08/06/24 History release (Pako Low Dose Aspirin) multivitamin 1 tab PO QAM 05/14/21 08/06/24 History mecobalamin (vitamin B12) 500 mcg 500 mcg PO QAM 01/13/23 07/16/24 History chewable tablet metformin 500 mg tablet 1,000 mg PO BID 01/13/23 08/06/24 History metoprolol succinate 25 mg 50 mg PO QAM 07/17/23 08/06/24 History tablet,extended release 24 hr rosuvastatin 5 mg tablet 5 mg PO HS 07/17/23 08/06/24 History apixaban 5 mg tablet 5 mg PO BID 07/16/24 08/06/24 History hydralazine 25 mg tablet 25 mg PO QAM 07/16/24 07/16/24 History isosorbide mononitrate 30 mg 15 mg PO QAM 07/16/24 07/16/24 History tablet,extended release 24 hr pantoprazole 20 mg tablet,delayed 20 mg PO QAM 07/16/24 08/06/24 History release semaglutide 0.25 mg or 0.5 mg (2 0.5 mg subcut WK 07/16/24 08/06/24 History mg/3 mL) subcutaneous pen injector spironolactone 25 mg tablet 25 mg PO QAM 07/16/24 08/06/24 History docusate sodium 100 mg tablet 100 mg PO BID PRN Constipation 07/24/24 08/06/24 History Past Med/Surg History Problem List Symptomatic bradycardia (Acute) 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 Kaur ICD (implantable cardioverter-defibrillator) in place placed 5 days after open heart surgery at [facility], January 2023 > [employer] - last checked "few months" Urethral injury self catherizes 3 times a day- follows w/ urology at [facility] [place] INJURY 1957--HAD MULTIPLE PROCEDURES TO ENLARGE WITH CATH PLACEMENTS Diabetes mellitus, type 2 NIDDM Hypertension controlled, stable per pt Surgical History History of aortic valve replacement Hx of right cataract extraction History of cataract surgery left History of cardiac cath January 2023 at [facility] > no stents > bypass/valve surgery History of coronary artery bypass graft January 2023 at [facility] > 2 vessels H/O elbow surgery right History of tooth extraction ALL TEETH History of tonsillectomy Family History Other No pertinent family history in first degree relatives Social History Smoking Status: Former smoker Tobacco Type: Pipe Smoking End Date: quit 1980; Second Hand Exposure: No; Do You Dip or Chew Tobacco: No; Tobacco Cessation Education Requested by Patient: No Hx Alcohol Use: Yes Alcohol type: wine Hx Substance Use: No Preferred Language: Norwegian Communication Ability: Effective Pediatric Cns Required: No Beliefs That Will Affect Care: None Current Living Situation: Spouse current occupation: Retired Other Information That Helps Us Care for You: No Feels Safe at Home: Yes Safety Concerns: Feels Safe At This Time Assistive Devices: Denture - Upper, Denture - Lower and Glasses Results & Data Vital Signs (Past 12 Hours) Vital Signs Temp Pulse Resp BP BP Pulse Ox O2 Del Method 08/06/24 06:13 36.8 C 84 20 128/74 134/87 97 Room Air
--- NOTE | 2024-08-06 07:55 | History & Physical Bridge Note ---
Date of Service August 06, 2024 History & Physical Bridge Note Patient did not start his plavix. Will load with Brilinta. Patient agreeable to this. He is here for a right tcar. I have examined the patient, reviewed the History & Physical and in the interval since the performance of the History & Physical I have noted the following changes of clinical significance: no changes noted
[2024-08-06] MEDS: TICAGRELOR 90 MG TAB PO STA (08:54)
--- NOTE | 2024-08-06 11:14 | Anesthesia Procedure Note ---
Anesthesia Procedure Note Arterial Line Note Patient medical history, medications, allergies and vitals reviewed. Date of procedure: 08/06/24 Consent: Risk / Benefits Reviewed With: PT / POA / Parent / Guardian, Accepts Plan, Informed Consent Obtained and All Questions Answered Monitors attached: Blood Pressure, EKG and Pulse Oximetry Time out completed: Yes Premedication: None Laterality: Left (2 attempts on right) Location: Radial Hand hygeine: Soap and water and Alcohol based hand rub Equipment/Supplies: Cap, Mask, Sterile gown, Sterile gloves, Sterile drapes and Sterile procedures used Skin prep: Chloraprep Local medication: 1% Lidocaine (ml) Ultrasound used: Yes US equipment and supplies: Sterile Gel Attempts: 3 Procedure Summary: two attempts made on right side that had positive blood flow but unable to pass the catheter. these attempts were done under us by tristan. 20 gauge angiocath advanced until return of bright red blood. Catheter threaded using seldinger technique with return of pulsatile, bright red blood. Catheter secured with tape and covered with occlusive dressing. Waveform consistent with correct arterial placement. After placement, normal perfusion was observed distal to the site of catheter placement. by merissa Post-Procedure: Pt hemodynamically stable, Pt tolerates well and No complication Anesthesia Charges Arterial Line A Line Charges: 25662 Insert Art line [facility]/Vicente/Wood
[2024-08-06] MEDS ORDERED: ONDANSETRON INJ 2 MG/ML 2 ML VIAL IV PRN (11:16)
[2024-08-06] MEDS ORDERED: ePHEDrine sulfate 50 MG/ML AMP IV PRN (11:16)
[2024-08-06] MEDS ORDERED: fentaNYL citrate PF 100 MCG/2 ML VIAL IV PRN (11:16)
[2024-08-06] MEDS ORDERED: ATROPINE SULFATE 0.1 MG/ML 10ML SYR IV PRN (11:16)
[2024-08-06] MEDS ORDERED: HYDROmorphone INJ 1 MG/ML SYRINGE IV PRN (11:16)
--- OUTSIDE RECORDS SUMMARY | 2024-08-06 11:30 | External Medical Summary | Continuity of Care Document ---
Author Name Unknown Organization [facility] [address] Address [address] [place], [place] [id number] Care Team Providers Care Compliance Professional Name Role Phone Eliza Mccarty Primary Care Physician [phone] Encounter [facility] [id number] Date(s): 08/02/24 - 08/02/24 [facility] [address] [facility] 1 [facility] [address] [place], [place] [phone] Encounter Diagnosis Occlusion and stenosis of right carotid artery(Final) - Discharge Disposition: Home or Self Care Attending Physician: GEORGE Lizarraga Lynn Referring Physician: GEORGE Lizarraga Lynn Allergies, Adverse Reactions, Alerts Substance Criticality Severity Reaction Reaction Severity Status Statins (HMG-CoA reductase inhibitors) Myalgia Arthralgia Active Shingrix Cellulitis Redness Active Medications apixaban 5 mg oral tablet Start: 05/16/24 1:31:00 PM EDT, 1 tab, PO, bid Start Date: 05/16/24 Status: Ordered aspirin 81 mg oral delayed release tablet Start: 01/18/21 1:23:00 PM EDT, 1 tab, PO, Daily Start Date: 01/18/21 Status: Ordered metFORMIN 1000 mg oral tablet Start: 01/18/21 1:23:00 PM EDT, 1 tab, PO, bid Start Date: 01/18/21 Status: Ordered metoprolol succinate 25 mg oral tablet, extended release Start: 04/17/23 1:04:00 PM EDT, See Instructions, 1.5 tab PO Daily Start Date: 04/17/23 Status: Ordered multivitamin Start: 01/18/21 1:23:00 PM EDT, 1 tab, PO, Daily Start Date: 01/18/21 Status: Ordered omega-3 polyunsaturated fatty acids 1200 mg oral capsule Start: 01/18/21 1:29:00 PM EDT, with 1000 vitamin D3 Start Date: 01/18/21 Status: Ordered Ozempic (0.25 mg or 0.5 mg dose) 2 mg/3 mL subQ pen Start: 05/16/24 1:32:00 PM EDT, 0.5 mg, subQ, q7days, Disp# 3 mL, Supply Start Date: 05/16/24 Status: Ordered pantoprazole 20 mg oral delayed release tablet Start: 05/16/24 1:39:00 PM EDT, 1 tab, PO, Daily Start Date: 05/16/24 Status: Ordered Plavix 75 mg oral tablet Start: 07/11/24 11:01:00 AM EDT, 1 tab, PO, Daily, Disp# 30 tab, Refills: 11, Pharmacy: [facility] Start Date: 07/11/24 Status: Ordered rosuvastatin 20 mg oral tablet Start: 04/17/23 1:03:00 PM EDT, 1 tab, PO, Daily Start Date: 04/17/23 Status: Ordered spironolactone 25 mg oral tablet Start: 05/16/24 1:31:00 PM EDT, 1 tab, PO, Daily Start Date: 05/16/24 Status: Ordered tamsulosin 0.4 mg oral capsule Start: 04/17/23 1:05:00 PM EDT, 1 cap, PO, Daily Start Date: 04/17/23 Status: Ordered Problem List Condition Confirmation Course Effective Dates Status Health St atus Informant AAA (abdominal aortic aneurysm) Confirmed Active Stenosis of right internal carotid artery Confirmed Active Results Laboratory List Name Date Platelet Function (P2Y12 Receptor) (PLT FUNCTION P2Y12) 08/02/24 Most recent to oldest [Reference Range]: 1 P2Y12 Platelet Function [194-418 PRU] 24 4 PRU 1 (08/02/24 12:11 PM) 1Result Comment: PRU reference range is 194-418 (healthy adults, no drug treatment). Post Drug Results: Lower PRU levels are expected following treatment with antiplatelet drugs. Post-treatment values are usually below the stated reference range above. The post-drug PRU values reported in the VerifyNOW P2Y12 package insert are 18-435. This broader range reflects the variability in drug response and is consistent with significant numbers of patients with decreased sensitivity to P2Y12 receptor antagonists (prasugrel or clopidogrel). Clinical studies suggest an on-treatment PRU>230 indicates less than optimal response to therapy, and PRU<208 at 12-24 hours after percutaneous intervention or during follow-up is associated with a lower risk of cardiovascular events (1). (1).Standard-vs high-dose clopidogrel based on platelet function testing after percutaneouscoronary intervention: the GRAVITAS randomized trial. Cristobal et al. KIMMIE. 2010December 01; 305(11): 5998-2539. doi: 10.1001/kimmie.2010.290 Social History Social History Type Response Smoking Status Never smoked cigaret elvia Sex Male Sex Representation Male (finding) Patient Care team information Care Team Personnel Name: GEORGE Mccarty Phuong Tran Position: Referring Member Role: Primary Care Provider Address: [place] [address] Name: GEORGE Lizarraga Lynn Position: Physician Swine Nutritionist Exempt - Vasc Surg Member Role: Lifetime Relationship Address: [address] [place] [address] [place]
[2024-08-06] MEDS: ceFAZolin 2000MG 2,000 MG/15 ML SYR IV SCH ×2 (11:34→20:31)
[2024-08-06] MEDS: THROMBIN FOR SOLN 20000 UNIT KIT ONE ×2 (11:57→12:54)
[2024-08-06] MEDS: ceFAZolin 330 MG/ML 1 GM VIAL ONE ×2 (11:57→12:53)
[2024-08-06] MEDS: BUPIVACAINE/EPINEPHRINE 0.5% MPF 1:200,000 30 ML VIAL ONE ×2 (11:57→12:20)
[2024-08-06] MEDS: GELATIN SPONGE SZ 100 ONE ×2 (11:57→12:54)
[2024-08-06] MEDS ORDERED: PROTAMINE SULFATE 10 MG/ML 5 ML VIAL IV ONE (12:16)
[2024-08-06] MEDS: VISIPAQUE IV ONE (12:19)
[2024-08-06] MEDS: SURGICEL ABSORB HEMOSTAT 2IN X 14IN TOP ONE (12:20)
[2024-08-06] MEDS: ARISTA ABSORBABLE HEMOSTAT 3GM TOP ONE (12:29)
--- NOTE | 2024-08-06 12:44 | Procedure Note ---
Angiogram Post Procedure Fluoroscopy Time (minutes): 2.4 Radiation (mGy): 16 Contrast: 9 Post Operative Report Pre & Post Diagnosis Operation Date: 08/06/24 08:00 Pre-Op Diagnosis: Right Internal Carotid Artery Stenosis Post-Op Diagnosis: Right Internal Carotid Artery Stenosis I identified the patient and participated in the time-out.: Yes Procedure Operation Date: 08/06/24 08:00 Actual Procedures p Right Transcarotid Artery Revascularization with Ultrasound, Left Common Femoral Vein - Aleksander Peñaloza MD Surgeon Aleksander Peñaloza MD High Wire Artist Tiffany,PAC Estimated Blood Loss 10 Findings Consistent with Post-Op Diagnosis Specimens none Anesthesia Type General Complications none Disposition Accompanied Patient To Recovery: No Disposition: Recovery Room Indications This is a 4-year-old gentleman was found to have a severe greater than 90% narrowing of his right internal carotid artery. Intervention was recommended. He elected to go ahead with a TCAR..cons Description of Procedure The patient was taken to the operating room and placed in supine position. After general anesthesia was accomplished the groins and right side of the neck and chest were prepped and draped in a sterile manner. Timeout was performed and the patient was identified. A transverse incision was made just above the clavicle between the heads of the sternocleidomastoid. This is carried down to where the common carotid artery was identified. It was isolated. It was slung with umbilical tape. Next the U stitch was placed in the common carotid artery with a 5-0 Prolene suture. Patient was given 8000 heparin at that time. Ultrasound was then used to localize the left common femoral vein. The vein was patent and compressed easily. Under ultrasound guidance the left common femoral vein was punctured and the venous sheath was inserted. This was aspirated and flushed with heparinized saline. ACT at that time was 293. Using micropuncture technique the common carotid artery was punctured. The micro sheath was inserted to 3 cm. Injection was then done showing the bifurcation. There was a significant lesion seen at the origin of the internal carotid artery on the left side. We then inserted the J-wire left and short of the lesion. The micro larios th was removed and the TCAR sheath was inserted. It was done through a separate tunnel and placed at the 3 cm tab. It was sutured to the chest wall. We then flushed the tubing appropriately. The venous return to was clamped onto the TCAR sheath. It was flushed through and then attached to the venous inflow sheath in the left groin. Sheath was checked for flow. The saline cleared nicely. The common carotid artery was then clamped. Flow reversal was instituted.The flow reversal was again checked for flow and found to have good flow after clamping. We inserted a 4 x 25 balloon backloaded on the wire. The wire was passed through the lesion into the petrous portion of the internal carotid. The 4 balloon was then advanced to the lesion. Lesion was then predilated with a 4 mm balloon. Balloon was removed. We then inserted the 9/7 x 40 stent. This was deployed across the lesion without difficulty. The catheter was removed. Appeared to be still a slight amount of narrowing at the midportion of the stent. We then inserted a 4.5 x 25 balloon and redilated this area. Widely patent stent was then noted on fluoroscopy. The carotid was allowed to go 2 minutes with flow reversal. Completion angiogram was done at that time which showed a widely patent carotid stent. At that point the common carotid artery was unclamped. The venous return tubing was clamped and removed from the TCAR sheath. The blood was allowed to flow back into the venous system. The TCAR sheath was then removed and the 5-0 Prolene suture securely tied. The patient was given 25 mg of protamine. Hemostasis was noted of the puncture site. An ACT was then drawn. The ACT was 135. The sheath was pulled from the groin and pressure was applied. Wound was irrigated with saline solution. Adequate hemostasis was obtained of the wound. Once this was noted the wound was closed in usual fashion using a 3-0 Vicryl suture for the subcutaneous layer and a 4-0 subcuticular Vicryl suture for the skin edges. Dermabond was used for dressing. The patient left the operation room in satisfactory condition and tolerated the procedure well. All needle and sponge counts were correct at the end of the procedure. Alejandra Lizarraga Pac assisted due to lack of resident availability and was necessary for positioning, draping, retraction, wound closure deep layers, subcutaneous tissue, and skin closure and was necessary for assisting with the case. I attest to the content of the Intraoperative Record and any orders documented therein. Any exceptions are noted below.
[2024-08-06] MEDS ORDERED: PHARMACY GLYCEMIC MGMT CONSULT PRN (13:20)
[2024-08-06] MEDS ORDERED: STAT IV Infusion **Titration per Protocol STA (13:20)
[2024-08-06] MEDS ORDERED: oxyCODONE/ACETAMINOPHEN 5mg/325mg TAB PO PRN (13:20)
[2024-08-06] MEDS ORDERED: PHENYLEPHRINE/NSS 25 MG/250 ML BAG IV PRN (13:20)
[2024-08-06] MEDS ORDERED: DOCUSATE SODIUM 100 MG CAP PO PRN (13:48)
[2024-08-06 13:53] VITALS: TEMP 97.7
--- NOTE | 2024-08-06 14:10 | Anesthesiology Progress Note ---
Date of Service August 06, 2024 Anesthesia Post Procedure Vital Signs Vital Signs: Temp Pulse Resp BP BP BP Pulse Ox 08/06/24 13:15 70 13 99/45 L 105/57 L 98 08/06/24 13:07 36.4 C L 70 16 95/39 L 101/59 L 96 08/06/24 06:13 36.8 C 84 20 128/74 134/87 97 O2 Del Method 08/06/24 13:15 Room Air 08/06/24 13:07 Room Air 08/06/24 06:13 Room Air Transfer of Care Handoff Completed per policy Notes Mental Status: alert / awake / arousable and participated in evaluation Patient Amnestic to Procedure: Yes Nausea / Vomiting: adequately controlled Pain: adequately controlled Airway Patency, RR, SpO2: stable & adequate BP & HR: stable & adequate Hydration State: stable & adequate Anesthetic Complications: no major complications apparent and Pt Satisfied with anesthetic care Notes: pt defibrlator was turned back on by Haztucesta
[2024-08-06] MEDS ORDERED: GLUCOSE 40% GEL 15 GM TUBE PO PRN (14:15)
[2024-08-06] MEDS ORDERED: GLUCAGON FOR INJ 1 MG VIAL SQ PRN (14:15)
[2024-08-06] MEDS ORDERED: DEXTROSE 50% 50 ML SYRINGE IV PRN (14:15)
[2024-08-06] MEDS ORDERED: CARBOHYDRATES FOR HYPOGLYCEMIA PO PRN (14:15)
[2024-08-06] MEDS ORDERED: GLUCOSE 10 TAB/TUBE PO PRN (14:15)
--- NOTE | 2024-08-06 14:15 | Pharmacy Report ---
Pharmacy Glycemic Short Note 2 - Date of Service August 06, 2024 - Glycemic Short BSG Results (Last 24 hours): 08/06/24 08/06/24 08/06/24 06:14 06:16 13:12 Glucose 170 H POC Glucose 160 H 171 H OUTPATIENT ANTIDIABETIC REGIMEN: * Semaglutide 0.5mg SQ weekly on Tuesdays, last dose 07/30/24 * Metformin 1g PO BID * A1c 7% 07/24/24 ASSESSMENT: * 84 yo M, s/p Right Transcarotid Artery Revascularization by Dr Peñaloza, received 4mg IV Dexamethasone in OR. Type 2 diabetic. * Pt is maintained on oral antidiabetic agents as an outpatient * Oral agents are not recommended for inpatient use d/t drug interactions, changing PO intake, and difficulty titrating for acute hyper/hypoglycemia. * Will hold oral agents for admission and utilize SQ basal bolus insulin regimen which is the recommended regimen for inpatient glycemic control. * Will initiate weight based insulin dosing for insulin faye patient and titrate based on BSG trends. PLAN FOR INPATIENT GLYCEMIC CONTROL: * Hold outpatient diabetes medications * Basal insulin * Lantus 20 units SQ x1 dose now, 15 units HS for BSG > 180mg/dl, then further basal dosing in AM * Bolus insulin * NovoLog per scale ACHS or Q6hrs while NPO * Goal Range: Low 110 mg/dL - High 140 mg/dL * Correction Factor: 20 mg/dL/unit * Nutritional / Prandial insulin per carb ratio of 1 unit per 7 grams CHO consumed
[2024-08-06] MEDS ORDERED: LANTUS PER UNIT CHARGE SC ONE (14:30)
--- NOTE | 2024-08-06 16:24 | Critical Care Consultation ---
Date of Consultation August 06, 2024 Assessment & Plan (1) Multiple vessel coronary artery disease: (2) Atherogenic dyslipidemia: (3) Cardiomyopathy: (4) Stenosis of right carotid artery: (5) GERD (gastroesophageal reflux disease): (6) Multiple vessel coronary artery disease: (7) Cardiomyopathy: (8) ICD (implantable cardioverter-defibrillator) in place: (9) Hypertension: (10) Diabetes mellitus, type 2: Plan -- Carotid artery stenosis S/p right sided TCAR on 08/06/[address] Peñaloza Monitor neurologic signs, monitor H&H Continue with statin --Coronary artery disease with history of systolic CHF Seems to be compensated Left-sided AICD in place 2D echo 01/27/2023: EF 35-40%, mild aortic valve stenosis, RV normal in size and function, moderate AR --Hypertension On metoprolol, isosorbide mononitrate and spironolactone at home -- Diabetes type 2 Continue with ICU hypoglycemia protocol On metformin and Ozempic at home -- GERD On pantoprazole at home -- BPH On tamsulosin --Prophylaxis VTE: Eliquis GI: Pantoprazole Lines: Left radial, peripheral Diet: Cardiac Plan: Strict in and out Monitor blood pressure and neurochecks every 4 hours Monitor H&H given the hematoma appreciated around the incision site Recommend judicious use of IV fluids especially given the EF of 35-40% Please note the above document was generated using voice recognition software. It may contain grammatical, syntax or spelling errors.Any formal questions or concerns about the content, text or information contained within the body of this dictation should be directly addressed to the provider for clarification. History of Present Illness Attending Physician: Aleksander Peñaloza MD History of Present Illness 84-year-old male came to the hospital to have right-sided TCAR Past medical history: Diabetes, GERD, dyslipidemia, on Eliquis Transferred to the ICU for further observation At the time of examination in the ICU, his SBP was in the 100 through the left radial line He was saturating 95% on room air. Denied any chest pain, no shortness of breath He was asking if he could have something to eat or drink. No difficulty swallowing Denied any headache or blurry vision No focal weakness Did complain of some soreness at the incision site Denies any abdominal pain. Social history: Used to smoke pipe, quit in 1979. Used to work in [employer]. Allergies Allergy/AdvReac Type Severity Reaction Status Date / Time lisinopril Allergy Severe angioedema Verified 08/06/24 06:16 atorvastatin Allergy Unknown Muscle Pain Verified 08/06/24 06:16 ezetimibe [From Zetia] Allergy Unknown Muscle Pain Verified 08/06/24 06:16 zoster vaccine live Allergy Unknown Rash Verified 08/06/24 06:16 simvastatin AdvReac Unknown Muscle Pain Verified 08/06/24 06:16 Home Medications Medication Instructions Recorded Confirmed Type omega-3s 300 [id number] 1 tab PO HS 05/25/18 08/06/24 History [id number] oil 1,000 mg capsule (Callahan-3 Fish Oil) aspirin 81 mg tablet,delayed 81 mg PO QAM 05/14/21 08/06/24 History release (Pako Low Dose Aspirin) multivitamin 1 tab PO QAM 05/14/21 08/06/24 History mecobalamin (vitamin B12) 500 mcg 500 mcg PO QAM 01/13/23 07/16/24 History chewable tablet metformin 500 mg tablet 1,000 mg PO BID 01/13/23 08/06/24 History metoprolol succinate 25 mg 50 mg PO QAM 07/17/23 08/06/24 History tablet,extended release 24 hr rosuvastatin 5 mg tablet 5 mg PO HS 07/17/23 08/06/24 History apixaban 5 mg tablet 5 mg PO BID 07/16/24 08/06/24 History hydralazine 25 mg tablet 25 mg PO QAM 07/16/24 07/16/24 History isosorbide mononitrate 30 mg 15 mg PO QAM 07/16/24 07/16/24 History tablet,extended release 24 hr pantoprazole 20 mg tablet,delayed 20 mg PO QAM 07/16/24 08/06/24 History release semaglutide 0.25 mg or 0.5 mg (2 0.5 mg subcut WK 07/16/24 08/06/24 History mg/3 mL) subcutaneous pen injector spironolactone 25 mg tablet 25 mg PO QAM 07/16/24 08/06/24 History docusate sodium 100 mg tablet 100 mg PO BID PRN Constipation 07/24/24 08/06/24 History Patient History Medical History Stenosis of right carotid artery severe Umbilical hernia GERD (gastroesophageal reflux disease) since starting Ozempic History of bradycardia pacemaker placed On anticoagulant therapy Multiple vessel coronary artery disease s/p CABG x 2 Cardiomyopathy EF 30% Hyperlipidemia Second degree atrioventricular block pacer > follows with [facility] and Dr. 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- follows w/ urology at [facility]URY 1957--HAD MULTIPLE PROCEDURES TO ENLARGE WITH CATH PLACEMENTS Diabetes mellitus, type 2 NIDDM Hypertension controlled, stable per pt Surgical History History of aortic valve replacement Hx of right cataract extraction History of cataract surgery left History of cardiac cath January 2023 at [facility] > no stents > bypass/valve surgery History of coronary artery bypass graft January 2023 at [facility] > 2 vessels H/O elbow surgery right History of tooth extraction ALL TEETH History of tonsillectomy Family History Other No pertinent family history in first degree relatives Social History Smoking Status: Former smoker Tobacco Type: Pipe Smoking End Date: quit 1980; Second Hand Exposure: No; Do You Dip or Chew Tobacco: No; Tobacco Cessation Education Requested by Patient: No Hx Alcohol Use: Yes Alcohol type: wine Hx Substance Use: No Preferred Language: Hungarian Communication Ability: Effective Drill Instructor Required: No Beliefs That Will Affect Care: None Current Living Situation: Spouse current occupation: Retired Other Information That Helps Us Care for You: No Feels Safe at Home: Yes Safety Concerns: Feels Safe At This Time Assistive Devices: Denture - Upper, Denture - Lower and Glasses Review of Systems 2 Review of Systems: All systems reviewed & are unremarkable except as noted in HPI & below Physical Exam 2 Physical Exam: Constitutional: No acute distress HEENT: EOMI, PERRLA, right-sided incision with hematoma around it, minimal amount of blood oozing Respiratory system: Decreased air entry bilaterally, no wheeze, no rhonchi, no crackles CVS: S1-S2 positive, no murmurs or gallops, left-sided AICD in place Abdomen: Soft, nontender, nondistended, positive bowel sounds x4 Extremities: +2 pulses bilaterally radialis/ dorsalis pedis, no cyanosis, no edema Neuro: Awake alert oriented x3 Psych: Normal mood and affect G/U: No Hankins Left groin had some ecchymotic lesion Skin: no rashes, warm and dry Lymphatic: no cervical or axillary lymphadenopathy Results & Data Results & Data Vital Signs (Past 12 Hours) Vital Signs Temp Pulse Pulse Resp BP BP BP 08/06/24 15:36 63 10 L 08/06/24 15:31 123/54 L 08/06/24 15:31 123/54 L 08/06/24 15:27 69 8 L 08/06/24 15:03 66 9 L 08/06/24 15:00 139/52 L 08/06/24 15:00 139/52 L 08/06/24 14:48 68 08/06/24 14:36 63 15 08/06/24 14:31 118/57 L 08/06/24 14:16 118/52 L 08/06/24 13:55 68 22 116/48 L 08/06/24 13:45 36.5 C 62 17 110/44 L 08/06/24 13:35 66 17 114/45 L 08/06/24 13:25 84 24 111/48 L 08/06/24 13:15 70 13 99/45 L 08/06/24 13:07 36.4 C L 70 16 95/39 L 08/06/24 06:13 36.8 C 84 20 128/74 BP Pulse Ox O2 Del Method 08/06/24 15:36 08/06/24 15:31 08/06/24 15:31 08/06/24 15:27 94 Room Air 08/06/24 15:03 08/06/24 15:00 08/06/24 15:00 96 Room Air 08/06/24 14:48 08/06/24 14:36 97 Room Air 08/06/24 14:31 08/06/24 14:16 08/06/24 13:55 121/67 94 Room Air 08/06/24 13:45 110/70 95 Room Air 08/06/24 13:35 117/58 L 97 Room Air 08/06/24 13:25 116/66 96 Room Air 08/06/24 13:15 105/57 L 98 Room Air 08/06/24 13:07 101/59 L 96 Room Air 08/06/24 06:13 134/87 97 Room Air Laboratory Results 08/06/24 06:16 Coding Level of Care Code 65850 IN/OBS CONSULT LVL 4,60M Diagnoses Multiple vessel coronary artery disease I25.10 Atherogenic dyslipidemia E78.5 Cardiomyopathy I42.9 Stenosis of right carotid artery I65.21 GERD (gastroesophageal reflux disease) K21.9 ICD (implantable cardioverter-defibrillator) in place Z95.810 Hypertension I10 Diabetes mellitus, type 2 E11.9
[2024-08-06] MEDS: INSULIN ASPART PER UNIT CHARGE SC SCH (17:14)
[2024-08-06] MEDS: LANTUS PER UNIT CHARGE SC SCH (17:44)
[2024-08-06] MEDS: APIXABAN 5 MG TABLET PO SCH (20:34)
[2024-08-06] MEDS: ROSUVASTATIN CALCIUM 5 MG TAB PO SCH (20:34)
[2024-08-06] MEDS: OMEGA-3 (PURIFIED FISH OIL) 1 GM CAP PO SCH (20:34)
[2024-08-06] MEDS: LANTUS PER UNIT CHARGE SC ONE (20:37)
--- NOTE | 2024-08-07 07:16 | Critical Care Progress Note ---
Date of Service August 07, 2024 Assessment & Plan (1) Multiple vessel coronary artery disease: (2) Atherogenic dyslipidemia: (3) Cardiomyopathy: (4) Stenosis of right carotid artery: (5) GERD (gastroesophageal reflux disease): (6) ICD (implantable cardioverter-defibrillator) in place: (7) Hypertension: (8) Diabetes mellitus, type 2: Plan -- Carotid artery stenosis S/p right sided TCAR on 08/06/[address] Peñaloza Monitor neurologic signs, monitor H&H Continue with statin --Coronary artery disease with history of systolic CHF Seems to be compensated Left-sided AICD in place 2D echo 01/27/2023: EF 35-40%, mild aortic valve stenosis, RV normal in size and function, moderate AR --Hypertension On metoprolol, isosorbide mononitrate and spironolactone at home -- Diabetes type 2 Continue with ICU hypoglycemia protocol On metformin and Ozempic at home -- GERD On pantoprazole at home -- BPH On tamsulosin --Prophylaxis VTE: Eliquis GI: Pantoprazole Lines: Left radial, peripheral Diet: Cardiac Plan: In/out: -1.1 L, urine output 1985 [facility] team has been made aware regarding oozing from the incision site Disposition as per vascular surgery Please note the above document was generated using voice recognition software. It may contain grammatical, syntax or spelling errors.Any formal questions or concerns about the content, text or information contained within the body of this dictation should be directly addressed to the provider for clarification. Admission and Anticipated Discharge Date Admission Date: August 06, 2024 Subjective Patient seen and examined at bedside. No acute distress, no adverse events overnight Did not have a good night sleep, he stated that usually likes to sleep on his own bed No abdominal pain, no groin pain Denied any shortness of breath He was saturating well on room air. Fair appetite, no difficulty swallowing No nausea or vomiting Review of Systems 2 Review of Systems: All systems reviewed & are unremarkable except as noted in Subjective Physical Exam 2 Physical Exam: Constitutional: No acute distress HEENT: EOMI, PERRLA, right-sided incision with hematoma around it, still oozing little bit of blood from the incision site Respiratory system: Decreased air entry bilaterally, no wheeze, no rhonchi, no crackles CVS: S1-S2 positive, no murmurs or gallops, left-sided AICD in place Abdomen: Soft, nontender, nondistended, positive bowel sounds x4 Extremities: +2 pulses bilaterally radialis/ dorsalis pedis, no cyanosis, no edema Neuro: Awake alert oriented x3, cranial nerves II to XII grossly intact Psych: Normal mood and affect G/U: No Hankins Left groin had some ecchymotic lesion Skin: no rashes, warm and dry Lymphatic: no cervical or axillary lymphadenopathy Results & Data Results & Data Vital Signs (Past 12 Hours) 08/06/24 06:16 Coding Level of Care Code 65524 SUB INP/OBS CARE 10/12MIN Diagnoses Multiple vessel coronary artery disease I25.10 Atherogenic dyslipidemia E78.5 Cardiomyopathy I42.9 Stenosis of right carotid artery I65.21 GERD (gastroesophageal reflux disease) K21.9 ICD (implantable cardioverter-defibrillator) in place Z95.810 Hypertension I10 Diabetes mellitus, type 2 E11.9
[2024-08-07] MEDS: LANTUS PER UNIT CHARGE SC ONE (08:38)
[2024-08-07] MEDS: SPIRONOLACTONE 25 MG TAB PO SCH (08:39)
[2024-08-07] MEDS: ASPIRIN 81 MG ECTAB PO SCH (08:42)
[2024-08-07] MEDS: hydrALAZINE HCL 25 MG TAB PO SCH (08:42)
[2024-08-07] MEDS: METOPROLOL SUCC 50MG EXT REL TAB PO SCH (08:43)
[2024-08-07] MEDS: PANTOprazole 40 MG TAB PO SCH (08:43)
[2024-08-07] MEDS: CYANOCOBALAMIN (B-12) 500 MCG TABLET PO SCH (08:43)
[2024-08-07] MEDS: ISOSORBIDE MONO EXTENDED REL 30 MG TABCR PO SCH (08:43)
[2024-08-07] MEDS: MULTIVITAMIN TAB PO SCH (08:43)
--- NOTE | 2024-08-07 09:22 | Pharmacy Report ---
Pharmacy Glycemic Short Note 2 - Date of Service August 07, 2024 - Glycemic Short BSG Results (Last 24 hours): 08/06/24 08/06/24 08/06/24 13:12 15:57 20:18 POC Glucose 171 H 170 H 195 H 08/07/24 07:28 POC Glucose 117 H OUTPATIENT ANTIDIABETIC REGIMEN: * Semaglutide 0.5mg SQ weekly on Tuesdays, last dose 07/30/24 * Metformin 1g PO BID * A1c 7% 07/24/24 ASSESSMENT: 08/07 * POD 1. Effects of dexamethasone IV yesterday likely persisting somewhat today, but may dissipate later today. Anticipate back to baseline stress tomorrow AM. * AM fasting BSG in goal range. But giving dissipating dexamethasone, will reduce Lantus to prevent hypoglycemia tomorrow AM * Increase noted in post-prandial BSG yesterday, but only 20 g CHO consumed. Will leave CF/CR tighter for now, but will likely loosen later today as effects of dexamethasone wear off 08/06 * 84 yo M, s/p Right Transcarotid Artery Revascularization by Dr Peñaloza, received 4mg IV Dexamethasone in OR. Type 2 diabetic. * Pt is maintained on oral antidiabetic agents as an outpatient * Oral agents are not recommended for inpatient use d/t drug interactions, changing PO intake, and difficulty titrating for acute hyper/hypoglycemia. * Will hold oral agents for admission and utilize SQ basal bolus insulin regimen which is the recommended regimen for inpatient glycemic control. * Will initiate weight based insulin dosing for insulin faye patient and titrate based on BSG trends. PLAN FOR INPATIENT GLYCEMIC CONTROL: * Hold outpatient diabetes medications * Basal insulin * Lantus 10 units SQ x1 dose now, then 0-10 units HS depending on BSG * Bolus insulin * NovoLog per scale ACHS or Q6hrs while NPO * Goal Range: Low 110 mg/dL - High 140 mg/dL * Correction Factor: 20 mg/dL/unit * Nutritional / Prandial insulin per carb ratio of 1 unit per 7 grams CHO consumed
[2024-08-07 13:10] VITALS: RESP 19; O2SAT 96
[2024-08-07 13:14] VITALS: BP 121/67; PULSE 68
--- NOTE | 2024-08-07 13:14 | Surgery Progress Note ---
Date of Service August 07, 2024 Assessment & Plan (1) Stenosis of right carotid artery: Plan: Patient POD #1 from a right tcar. He does have a fair amount of bruising from the brilinta. No focal deficits. Will be d/c'd today. Admission and Anticipated Discharge Date Admission Date: August 06, 2024 Subjective Patient without complaints POD #1 from a right tcar. Physical Exam Constitutional: WD/WN, vitals as above Neck: trachea midline Respiratory: normal respiratory effort; no respiratory distress Cardiovascular: Rate/Rhythm: regular rate and regular rhythm Skin: + incision (bruising around incision sit e and small amount of swelling) Neurologic: CN's II-XI intact bilaterally and moves all extremities Psychiatric: A+Ox3, euthymic affect Results & Data Vital Signs (Past 12 Hours) Vital Signs Pulse Resp BP Pulse Ox O2 Del Method 08/07/24 13:01 110/55 L 08/07/24 13:01 110/55 L 08/07/24 12:54 80 19 96 08/07/24 12:00 73 22 95 08/07/24 12:00 107/56 L 08/07/24 11:00 64 22 96 08/07/24 11:00 119/59 L 08/07/24 10:03 75 21 93 08/07/24 10:01 116/72 08/07/24 10:01 116/72 08/07/24 09:57 71 23 94 08/07/24 09:55 70 08/07/24 09:15 70 18 95 Room Air 08/07/24 09:15 104/49 L 08/07/24 09:06 63 22 96 Room Air 08/07/24 09:00 129/61 08/07/24 08:57 66 18 95 Room Air 08/07/24 08:09 67 19 96 Room Air 08/07/24 08:00 113/68 08/07/24 07:57 66 21 97 Room Air 08/07/24 07:03 64 21 93 Room Air 08/07/24 07:00 127/48 L Room Air
--- NOTE | 2024-08-07 13:21 | Discharge Summary ---
"Date of Service August 07, 2024 Admission HPI Per Admitting Provider Name: REINA ALFREDO Patient Number: [id number] : 1940 Date of Service: 07/11/2024 Chief Complaint: _Follow-up to discuss CTA neck HPI: _Mr. Alfredo is an elderly male who presents to Dr. Peñaloza's vascular surgery clinic today for an appointment to discuss his recent CTA of the neck done due to significantly increased velocities in the right ICA on a surveillance ultrasound. Patient continues to deny any symptoms, specifically amaurosis, unilateral extremity weakness numbness or tingling, difficulty speaking or swallowing, facial droop, sudden onset confusion. He is anxious for the results of his test. His is present today as well Imaging: Patient underwent a CTA of the neck performed at [facility] which demonstrates at least 90% stenosis of the right ICA, and about 50% stenosis of the left ICA. This is consistent with his recent ultrasound results. Current Home Meds: (Last Updated 07/11 11:03) apixaban (apixaban 5 mg oral tablet) 5 mg PO bid aspirin (aspirin 81 mg oral delayed release tablet) 81 mg PO Daily clopidogrel (Plavix 75 mg oral tablet) 75 mg PO Daily metFORMIN (metFORMIN 1000 mg oral tablet) 1,000 mg PO bid metoprolol (metoprolol succinate 25 mg oral tablet, extended release) 1.5 tab PO Daily multivitamin 1 tab PO Daily omega-3 polyunsaturated fatty acids (omega-3 polyunsaturated fatty acids 1200 mg oral capsule) with 1000 vitamin D3 pantoprazole (pantoprazole 20 mg oral delayed release tablet) 20 mg PO Daily rosuvastatin (rosuvastatin 20 mg oral tablet) 20 mg PO Daily semaglutide (Ozempic (0.25 mg or 0.5 mg dose) 2 mg/3 mL subQ pen) 0.5 mg subQ q7days spironolactone (spironolactone 25 mg oral tablet) 25 mg PO Daily HAZARDOUS MEDICATION | tablet: green | suspension: steve Lamar 05/16 13:31 tamSULOsin (tamsulosin 0.4 mg oral capsule) 0.4 mg PO Daily Allergies and Sensitivities: Shingrix(Redness) Shingrix(Cellulitis) Statins (HMG-CoA reductase inhibitors)(Arthralgia) Statins (HMG-CoA reductase inhibitors)(Myalgia) Past Medical History: Problems: Stenosis of right internal carotid artery OBJECTIVE Vitals: Last Updated 07/11/24 10:08 Date Temp BP Location Pulse RR SpO2 Pain 07/11/24 136/64 Right Arm 63 96 0 04/17/23 118/70 Right Arm 04/17/23 106/64 Left Arm 93 96 Vital Signs are the last 3 documented. No Orthostatic Data Available No Height/Weight Data Available Physical Exam Constitutional: In general patient is a healthy-appearing well-nourished well- developed elderly male in no distress. He is alert and oriented with any focal deficits. His right carotid does demonstrate a bruit. His heart is irregular. His lungs are clear. Brachial and radial pulses are +2. Lower extremities the pulses are +2. He is brisk capillary fill and no sign of distal ischemia. ASSESSMENT: _ PLAN: _ 1 ) _severe right ICA stenosis, asymptomatic Patient does appear to have severe right ICA stenosis of at least 90% by CTA. This degree of stenosis does place the patient at a significantly increased risk of having a stroke. Due to his increased risk of stroke, we recommended that the patient consider surgical intervention. The procedures of carotid endarterectomy versus transcarotid artery revascularization were discussed at length with the patient and his present. Patient elects to proceed with right TCAR. The risks of the surgery, including not limited to bleeding, infection, stroke, nerve damage, blood clots, heart attack, , or discussed at length with the patient by myself at Dr. Peñaloza's request. Patient expresses understanding and agreement to proceed. This will occur in the next few weeks at the patient's convenience. We did start the patient on clopidogrel 75 mg daily today, in addition to his 81 mg aspirin as well as his statin medication which he takes chronically. For a TCAR procedure, patients are required to be on Plavix, aspirin, and statin medication for 1 year postoperatively. Patient understands this. We will have the patient evaluated by his research biologist for clearance due to his significant cardiac history. Patient is advised to call with any questions or concerns. He is agreeable this plan. Thank you for letting us participate in the care of this patient. I have personally spent_40__ minutes performing myig-fh-mcfz and yor-qxov-qp-face activities on this date of service.Time does not include separately reported services. Activities Include: _x_ review of the medical record _x_ obtaining a history _x_ physical exam/evaluation __ review labs _x_ review radiology reports x__ counseling/educating patient/family/caregiver __ discussion/referral to other healthcare professional _x_ documenting care in the medical record __ independent interpretation of results _x_ communication of results to patient/family/caregiver _x_ coordination of care Signature Line Electronic Signature on File Electronically Reviewed/Signed by: Alejandra Lizarraga PA-C Author Signature Dt/Tm:07/11/2024 11:[address], [facility] [address] [place] [address] LM Addendum by GEORGE Lizarraga Lynn on July 11, 2024 11:15 EDT (Verified) Patient also brought a report of a CT abdomen pelvis done at the [facility] in [place] on January 23, 2024 which does demonstrate an infrarenal abdominal aortic aneurysm measuring 3.0 cm. This will require future surveillance, but does not require surgical intervention presently. Signature Line Electronic Signature on File CC: GEORGE Booker [facility] [address] [place] [address] * CC: ERICKA Rodriguez [facility] [address] [facility] [place] [address] * Electronically Reviewed/Signed by: Alejandra Lizarraga PA-C Author Signature Dt/Tm:07/11/2024 11:[address], [facility] [address] [place] [address] LM Result Type: HVI Outpt Note Date of Service: July 11, 2024 11:03 EDT Authorization Status: Modified Author or Import Date: GEORGE Lizarraga Lynn on July 11, 2024 11:09 EDT Verified By: GEORGE Lizarraga Lynn on July 11, 2024 11:09 EDT Encounter info: [id number], [place] [id number], Clinic, 07/11/2024 - 07/11/2024 Admission Exam Per Admitting Provider Constitutional: In general patient is a healthy-appearing well-nourished well- developed elderly male in no distress. He is alert and oriented with any focal deficits. His right carotid does demonstrate a bruit. His heart is irregular. His lungs are clear. Brachial and radial pulses are +2. Lower extremities the pulses are +2. He is brisk capillary fill and no sign of distal ischemia. Principal Diagnosis Right internal carotid artery stenosis Discharge Exam Constitutional WD/WN, vitals as above Neck trachea midline Respiratory normal respiratory effort; no respiratory distress Cardiovascular Rate/Rhythm: regular rate and regular rhythm Skin + incision (bruising around incision site and small amount of swelling) Neurologic CN's II-XI intact bilaterally and moves all extremities Psychiatric A+Ox3, euthymic affect Discharge Data Allergies Allergy/AdvReac Type Severity Reaction Status Date / Time lisinopril Allergy Severe angioedema Verified 08/06/24 06:16 atorvastatin Allergy Unknown Muscle Pain Verified 08/06/24 06:16 ezetimibe [From Zetia] Allergy Unknown Muscle Pain Verified 08/06/24 06:16 zoster vaccine live Allergy Unknown Rash Verified 08/06/24 06:16 simvastatin AdvReac Unknown Muscle Pain Verified 08/06/24 06:16 Consultations 08/06/24 13:20 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 He does have a fair amount of bruising from the brilinta. No focal deficits. Will be d/c'd today. Total Time Total Time Spent Total Time Spent (In Minutes): x Discharge Plan Discharge Items Patient Disposition: Home - Self-Care Reason For Visit: RIGHT INTERNAL CARTOID ARTERY STENOSIS Discharge Diagnosis: Right internal carotid artery stenosis Activity: Per Instructions section Non-emergency contact: Surgeon Call non-emergency contact if: your temperature is above 101.5, your wound has increased redness, your wound has increased drainage and your wound pain has i ncreased Follow-up/Referrals: Eliza Mccarty PA-C [Primary Care Provider] - Diet: Heart Healthy [facility] Attending Provider Instructions: SPECIAL CARE INSTRUCTIONS: Diet: * You may return to previous diet. Medications: * Continue to take Aspirin, Brilinta, and statin as directed. Incision Care: * You may shower, but do not rub incision. You may let the warm soapy water run over it. Be sure to dry the incision well after bathing. * Do not shave directly over the incision until it is healed. * DO NOT IMMERSE THE INCISION IN A TUB/POOL/etc. UNTIL HEALED. Restrictions: * Do not drive for at least one week or if you are still taking any narcotic pain medication. * Do not lift anything heavier than a gallon of milk for one week after going home. Possible Complications: * Numbness - It is normal to have some numbness around the incision. Numbness can extend beyond the incision to areas of the neck, ear and face. The numbness is due to bruising of nerves during the surgery and will gradually improve over a period of months. * Hoarseness/Difficulty Speaking and Swallowing - The bruising of nerves in the neck can also cause a hoarse voice, difficulty speaking or swallowing. This may improve over time, HOWEVER, if it continues for more than a few days please contact our office ([phone]). * Excessive Swelling - There will be some swelling immediately after surgery which usually resolves within one week. If you notice that the swelling is getting worse, notify your surgeon ([phone]). * Drainage/Bleeding - If there is any drainage or bleeding, it should be a very small amount (less than a teaspoon per day). If you have excessive bleeding or drainage from the incision, call your surgeon ([phone]) right away. ACTIVATION OF EMERGENCY MEDICAL SYSTEM: Call 911, immediately, if you experience any of the following: Warning Signs and Symptoms of Stroke: * Sudden numbness or weakness of the face, arm or leg, especially on one side of the body * Sudden confusion, trouble speaking or understanding * Sudden trouble seeing in one or both eyes * Sudden trouble walking, dizziness, loss of balance or coordination * Sudden severe headache with no cause Do not delay calling 911 if you experience any warning signs or symptoms of a stroke. Delay in seeking medical attention may affect what treatments can be given to you. Risk Factors for Stroke: You can reduce your chances of stroke by working with your medical provider to adopt a healthy lifestyle. Some specific ways to lower your chance of stroke are: * If you are a smoker, now is the time to stop smoking cigarettes * If you are diabetic, improve the control of your blood sugars * Avoid excessive amounts of alcohol * Control high blood pressure * Lose weight if you are overweight * Be sure to lead an active lifestyle * Eat a healthy diet low in salt, cholesterol and fat You should know about other risk factors for stroke that you are unable to control. These include: * Age 55 years or older * Male gender * Certain racial groups: , or / * Family History of Stroke, Mini stroke or Heart Attack * Sickle Cell Disease You will be receiving a call from the Vascular Surgery Nurse after you are discharged. FOLLOW UP VISIT: It is important for you to keep your follow up appointments with your medical provider. Keep any scheduled doctor appointments. Call [phone] to schedule a follow up appointment if one not already scheduled. Pending Studies at Discharge: No Stand-Alone Forms: My [facility] mNectar, Smoking Cessation Medications and DC Order Prescriptions: New oxycodone-acetaminophen [Percocet] 5-325 mg Tablet 1 - 2 tab PO Q4H PRN (Reason: pain) Qty: 10 0RF Brilinta 90 mg tablet 90 mg PO BID Qty: 60 11RF Continued mecobalamin (vitamin B12) 500 mcg tablet,chewable 500 mcg PO QAM [place]-3 Fish Oil 300-1,000 mg Capsule 1 tab PO HS metformin 500 mg tablet 1,000 mg PO BID multivitamin Tablet 1 tab PO QAM aspirin [[place]ako Low Dose Aspirin] 81 mg Tablet,Delayed Release (Dr/Ec) 81 mg PO QAM metoprolol succinate 25 mg tablet extended release 24 hr 50 mg PO QAM rosuvastatin 5 mg tablet 5 mg PO HS isosorbide mononitrate 30 mg Tablet Extended Release 24 Hr 15 mg PO QAM hydralazine 25 mg Tablet 25 mg PO QAM spironolactone 25 mg Tablet 25 mg PO QAM pantoprazole 20 mg Tablet,Delayed Release (Dr/Ec) 20 mg PO QAM apixaban 5 mg Tablet 5 mg PO BID semaglutide 0.25 mg or 0.5 mg (2 mg/3 mL) Pen Injector 0.5 mg SUBCUT WK Patient Comments: Monday docusate sodium 100 mg Tablet 100 mg PO BID PRN (Reason: Constipation) Discharge Orders: Discharge Order (Routine); Ordered 08/07/24 Ordered By: Aleksander Peñaloza Admission Data Admit Date/Time: 08/06/24 07:55 Attending Provider: Aleksander Peñaloza Admit Provider: Aleksander Peñaloza Primary Care Provider: Eliza Mccarty Other Providers: Bala Fishman; Jairo Chanel; Suresh García; Wali Oswald; Osorio Fritz; Mandie Robb; Juan A Carpenter; Nena Wiseman; Melissa Rajan; Anatoliy Braun; David Craig; Doris Cruz; [facility] Other Interventions: Discharge Summary Assessment (RN) Last Done: 08/07/24 13:10"
[2024-08-07] MEDS ORDERED: LANTUS PER UNIT CHARGE SC ONE (21:00)
== END 2024-08-07 15:04 | disposition home or self-care (01) | DRG 35 ==
LOC: ASU 05:51 → 1E 07:55
PROC: EV.TCAR (2024-08-06 08:00)